=== PATIENT | male | born 1955 | race Caucasian/White ===

== ENCOUNTER → 2016-03-20 | Outpatient (CLI) | payer OTHER ==
[~2016-03-20] MED LIST: AMT50 PO; B-COTAB18 PO; CYAN100T PO; CYM/30 PO; DICL1GEL12 TOP; DULO60CA44 PO; GABA-113 PO; GADAVIST IV PRN; INSDGIPEN SC; INSU70IN2 SC; LISI-725 PO; LISI-729 PO; METF1TAB53 PO; METH4PAK PO; MORP1CAP47 PO; MORP1TAB11 PO; MULT-506 PO; NF656 TOP; NVLGI/PEN SC; OXYC-164 PO; OXYC1TAB3 PO; POLY335019 PO; PRED50TA PO; PREG100C PO; PREG1CAP36 PO; PRS5 PO; TAMS0.4C38 PO; TOLT2TAB9 PO; hydrocodone PO
--- NOTE | 2016-03-20 13:00 | DIAGNOSTIC IMAGING REPORT ---
CERVICAL SPINE MRI WITH AND WITHOUT CONTRAST HISTORY: LOW BACK PAIN,TREMORING,MUSCLE WEAKNESS TECHNIQUE: Multiplanar multisequence MRI of the cervical spine was performed both before and after the use of intravenous contrast. COMPARISON STUDY: None. FINDINGS: Alignment and curvature intact. No fracture or subluxation. Moderate disc space narrowing at C5-C6. Mild disc space. C6-C7. Prevertebral soft tissues and the C1-C2 interval are intact. The visualized posterior fossa is unremarkable. The cervical spinal cord is normal in course, caliber, and signal intensity. Postcontrast sequences show no areas of abnormal enhancement. C2-C3: No significant central canal narrowing. Mild left-sided neural foraminal narrowing due to the facet hypertrophy. C3-C4: No significant central canal or neural foraminal narrowing. C4-C5: No significant central canal or neural foraminal narrowing. C5-C6: Small broad-based posterior disc bulge resulting in partial effacement of the anterior thecal sac without cord deformity. There is also moderate right and mild left neural foraminal narrowing. C6-C7: Broad-based posterior disc bulge which abuts but does not deform the anterior cord. There is mild right and moderate left neural foraminal narrowing. C7-T1: No significant central canal or neural foraminal narrowing. IMPRESSION: 1. Degenerative disc disease at C5-C6 and C6-C7 as described above. 2. Normal cervical spinal cord. No abnormal enhancement. Electronically signed by: Yao Romo M.D. 03/20/2016 12:58 PM Dictated Date/Time: 03/20/2016 12:49 PM
== END | disposition home or self-care (01) ==
LOC: C.MRIBC 10:49
PROVIDERS: ATTEND Anesthesiology
DX: R63.4 Abnormal weight loss (principal); R25.1 Tremor, unspecified; M62.81 Muscle weakness (generalized); M54.5 Low back pain; Z91.81 History of falling; M50.322 Other cervical disc degeneration at C5-C6 level; M50.323 Other cervical disc degeneration at C6-C7 level

== ENCOUNTER → 2016-03-22 | Outpatient (CLI) | payer OTHER ==
[~2016-03-22] MED LIST changes: -GADAVIST IV PRN
--- NOTE | 2016-03-22 13:09 | DIAGNOSTIC IMAGING REPORT ---
MRI THORACIC SPINE COMBO CLINICAL HISTORY: Leg pain and weakness. Frequent falls. COMPARISON STUDY: CT scan of the chest dated 01/04/2016. TECHNIQUE: MRI of the thoracic spine is performed utilizing various T1 and T2-weighted sequences in the axial and sagittal planes. Contrast-enhanced sequences are acquired following the IV administration of 6 cc of Gadavist. FINDINGS: Vertebral body height and alignment are maintained throughout the thoracic spine. Normal marrow signal is preserved throughout the visualized bony structures. No destructive bony lesion is seen. The spinous processes appear intact. There is mild degenerative disc desiccation seen throughout the thoracic spine. There is no acquired compromise of the central canal. Tiny posterior disc osteophyte complexes are seen at T5-T6, T9-T10, and T11-T12. These are of no consequence. No significant neural foraminal stenosis is seen. The thoracic spinal cord is normal in morphology and signal intensity. No abnormal enhancement is identified on the postcontrast images. The conus medullaris terminates at the T12-L1 interspace. The paraspinous soft tissues are within normal limits. IMPRESSION: 1. There is no disc herniation, central canal stenosis, or significant neural foraminal narrowing seen throughout the thoracic spine. 2. Mild degenerative change as above. 3. The thoracic spinal cord is normal in morphology and signal intensity. 4. No destructive bony process is identified. Electronically signed by: Arash Gomez M.D. 03/22/2016 1:07 PM Dictated Date/Time: 03/22/2016 1:00 PM
== END | disposition home or self-care (01) ==
LOC: C.MRIBC 11:32
PROVIDERS: ATTEND Anesthesiology
DX: R63.4 Abnormal weight loss (principal); M62.81 Muscle weakness (generalized); R29.6 Repeated falls; M54.5 Low back pain; R25.1 Tremor, unspecified; Z91.81 History of falling

== ENCOUNTER → 2016-04-26 | Outpatient (CLI) | payer OTHER ==
[2016-04-26 12:57] LABS: ESTIMATED AVERAGE GLUCOSE 117 mg/dl; HA1C FLAG Normal (Normal)
[2016-04-26 13:07] LABS: ALT/SGPT 31 U/L (12-78); AST/SGOT 14 U/L (15-37); BLOOD UREA NITROGEN 11 mg/dl (7-18); BUN/CREATININE RATIO 18.5 (10-20); CALCIUM 9.2 mg/dl (8.5-10.1); CARBON DIOXIDE 29 mmol/L (21-32); CHLORIDE 99 mmol/L (98-107); CHOLESTEROL 175 mg/dl (0-200); CREATININE 0.61 mg/dl (0.60-1.40); GLUCOSE 119 mg/dl (70-99); POTASSIUM 4.5 mmol/L (3.5-5.1); SODIUM 136 mmol/L (136-145); TRIGLYCERIDES 136 mg/dl (0-150); VERY LOW DENSITY LIPOPROT CALC 27 mg/dl
[2016-04-26 13:16] LABS: ALB/GLOB RATIO 1.1 (0.9-2); ALKALINE PHOSPHATASE 95 U/L (45-117); CHOLESTEROL/HDL RATIO 3.6; HDL CHOLESTEROL 48 mg/dl; LDL CHOLESTEROL CALCULATED 100 mg/dl; PROSTATE SPECIFIC ANTIGEN 0.543 ng/ml (0.000-4.000); THYROID STIMULATING HORMONE 0.786 uIu/ml (0.300-4.500)
[2016-04-26 19:42] LABS: RATIO 6.3 mcg/mg (0-30.0)
[2016-04-30 14:05] LABS: GAMMA GLOBULIN 0.6 G/DL (0.8-1.7); TOTAL PROTEIN 6.6 G/DL (6.2-8.3)
== END | disposition home or self-care (01) ==
LOC: C.LABPBG 10:31
PROVIDERS: ATTEND Psychiatry & Neurology Neurology
DX: E11.65 Type 2 diabetes mellitus with hyperglycemia (principal); Z12.5 Encounter for screening for malignant neoplasm of prostate; G62.9 Polyneuropathy, unspecified; M62.81 Muscle weakness (generalized); R53.1 Weakness

== ENCOUNTER 2016-06-02 19:48 | Emergency (ER) | payer OTHER ==
[~2016-06-02] VITALS: Ht 172.7 cm; Wt 65.9 kg
[~2016-06-02 19:48] MED LIST changes: -B-COTAB18 PO; -CYAN100T PO; -CYM/30 PO; -DICL1GEL12 TOP; -INSDGIPEN SC; -LISI-729 PO; -METH4PAK PO; -MORP1CAP47 PO; -NF656 TOP; -NVLGI/PEN SC; -OXYC-164 PO; -PRED50TA PO; -PREG100C PO; -PREG1CAP36 PO; -TOLT2TAB9 PO; -hydrocodone PO
[2016-06-02 19:55] VITALS: TEMP 36.8; Ht 172.7 cm; Wt 65.9 kg
[2016-06-02] MEDS ORDERED: ONDANSETRON 8 MG/54 ML D5W IV STA (20:20)
[2016-06-02] MEDS ORDERED: HYDROmorphone INJ 1 MG/ML SYR IV STA ×2 (20:20→23:09)
[2016-06-02] MEDS ORDERED: SODIUM CHLORIDE 0.9% 1000ML 1,000 ML IV STA (20:20)
[2016-06-02 20:32] VITALS: O2SAT 96
[2016-06-02] MEDS ORDERED: CYM/30 PO (20:52)
[2016-06-02] MEDS ORDERED: LISI-729 PO (20:55)
[2016-06-02 21:00] LABS: BASO % 0.1 %; BASO ABS # 0.01 K/uL (0-0.2); COMPLETE YES; EOS % 1.6 %; HEMATOCRIT 41.6 % (42-52); IG% 0.3 %; LYMPH ABS # 1.03 K/uL (1.2-3.4); MEAN CELL VOLUME 87.2 fL (80-100); MEAN CORPUSCULAR HEMOGLOBIN 30.6 pg (25-34); MEAN CORPUSCULAR HGB CONC 35.1 g/dl (32-36); MEAN PLATELET VOLUME 9.5 fL (7.4-10.4); MONO % 12.6 %; NEUT % 71.4 %; PLATELET COUNT 221 K/uL (130-400); RED BLOOD COUNT 4.77 M/uL (4.7-6.1); WHITE BLOOD COUNT 7.37 K/uL (4.8-10.8)
[2016-06-02] MEDS ORDERED: DICL1GEL12 TOP (21:01)
[2016-06-02] MEDS ORDERED: INSDGIPEN SC (21:02)
[2016-06-02] MEDS ORDERED: NF656 TOP (21:05)
[2016-06-02 21:09] LABS: PARTIAL THROMBOPLASTIN RATIO 1.1
[2016-06-02] MEDS ORDERED: NVLGI/PEN SC (21:10)
[2016-06-02] MEDS ORDERED: OXYC-164 PO (21:12)
[2016-06-02] MEDS ORDERED: TOLT2TAB9 PO (21:14)
[2016-06-02] MEDS ORDERED: PREG1CAP36 PO (21:16)
[2016-06-02 21:24] LABS: ALT/SGPT 27 U/L (12-78); BLOOD UREA NITROGEN 7 mg/dl (7-18); BUN/CREATININE RATIO 15.9 (10-20); C-REACTIVE PROTEIN 0.68 mg/dl (0-0.29); CALCIUM 8.6 mg/dl (8.5-10.1); CARBON DIOXIDE 27 mmol/L (21-32); CHLORIDE 103 mmol/L (98-107); CREATININE 0.46 mg/dl (0.60-1.40); GLUCOSE 119 mg/dl (70-99); MAGNESIUM 1.6 mg/dl (1.8-2.4); POTASSIUM 3.8 mmol/L (3.5-5.1); SODIUM 138 mmol/L (136-145)
[2016-06-02] MEDS ORDERED: hydrocodone PO (21:27)
[2016-06-02 21:33] LABS: ALKALINE PHOSPHATASE 87 U/L (45-117); AST/SGOT 16 U/L (15-37); CKMB/CK RATIO 3.8 (0-3.0); THYROID STIMULATING HORMONE 0.796 uIu/ml (0.300-4.500)
[2016-06-02] MEDS ORDERED: OPTIRAY 320 IV PRN (22:00)
--- NOTE | 2016-06-02 22:16 | DIAGNOSTIC IMAGING REPORT ---
CT SCAN OF THE ABDOMEN AND PELVIS WITH IV CONTRAST CLINICAL HISTORY: Generalized abdominal pain. COMPARISON STUDY: Abdominal CT dated 01/26/2016 and 11/13/2013. TECHNIQUE: Following the IV administration of 115 cc of Optiray 320, CT scan of the abdomen and pelvis is performed from the lung bases to the proximal femora. Images are reviewed in the axial, sagittal, and coronal planes. IV contrast was administered without complication. Automated dose control exposure was utilized. FINDINGS: Lung bases: The heart is top normal in size and there is a small pericardial effusion. There are coronary artery calcifications. The lung bases are clear noting dependent atelectasis. A tiny hiatal hernia is identified. Mild gynecomastia is noted. Liver: The contrast-enhanced liver is normal in size and contour. The liver demonstrates diffusely diminished attenuation consistent with hepatic steatosis. There is no intrahepatic biliary ductal dilatation. The hepatic veins and portal veins are patent. Gallbladder: Surgically absent noting clips in the gallbladder fossa. Spleen: Normal in size and attenuation. Pancreas: Moderately atrophic. Adrenal glands: An 8 mm myelolipoma is noted in the left adrenal gland. The right adrenal gland is normal in appearance. Kidneys: The contrast enhanced kidneys are normal in size and without hydronephrosis. The kidneys enhance symmetrically. Subcentimeter cortical hypodensities likely represent cysts but are too small for definitive characterization. Abdominal vasculature: The abdominal aorta is normal in course and caliber noting mild atherosclerotic calcification. 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 The duodenum fails to cross midline. The colon is in appropriate position. There is no bowel obstruction. The appendix is well-visualized and normal. Peritoneum: No intraperitoneal free air is identified. Again seen is extensive nonspecific haziness and stranding throughout the mesentery. More focal nodularity in the mesentery seen on image #[id number]. These findings are similar appearance to studies dating back to 2013. Lymphadenopathy: There are numerous prominent mesenteric lymph nodes, which measure up to 10 mm in short axis. No retroperitoneal, pelvic sidewall, or inguinal lymphadenopathy is seen. Pelvic viscera: The prostate gland is top normal in size. A small apical diverticulum arises from the bladder dome as seen on image #[id number]. The bladder is otherwise normal in appearance. Skeletal structures: No lytic or blastic lesions are seen. There is mild lumbosacral spondylosis, greatest at L4-L5 and L5-S1. IMPRESSION: 1. There are no acute infectious or inflammatory findings in the abdomen or pelvis. 2. 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 There is no bowel obstruction. 3. There has been no significant change in the appearance of nonspecific haziness and infiltration of the mesentery, greatest in the right mid abdomen, as compared to studies dating back to 2014. This is of indeterminant etiology and significance. Prominent mesenteric lymph nodes are also not significantly changed. Consider nonemergent follow-up with hematology as a low-grade lymphoproliferative disorder could potentially have this appearance. 4. Mild hepatic steatosis. 5. Small pericardial effusion. 6. Additional findings as above. Electronically signed by: Arash Gomez M.D. 06/02/2016 10:15 PM Dictated Date/Time: 06/02/2016 10:02 PM
--- NOTE | 2016-06-02 22:30 | DIAGNOSTIC IMAGING REPORT ---
CT ANGIOGRAM OF THE CHEST CLINICAL HISTORY: Atypical chest pain. Dyspnea. COMPARISON STUDY: Chest x-ray dated 01/26/2016. Chest CT dated 01/04/2016. TECHNIQUE: Following the IV administration of 115 cc of Optiray 320, CT angiogram of the chest was performed from the upper abdomen to the thoracic inlet utilizing the pulmonary embolus protocol. Images are reviewed in the axial, sagittal, and coronal planes. 3-D MIPS images are created and assessed. IV contrast was administered without complication. CT DOSE: 578.95 mGy.cm FINDINGS: Thyroid: Imaged portions of the thyroid gland are normal in size and attenuation. Thoracic aorta: There is mild atherosclerotic calcification of the thoracic aorta, which is normal in caliber and demonstrates standard 3-vessel arch anatomy. No dissection is seen. Pulmonary vasculature: The pulmonary trunk is normal in caliber. There are no filling defects identified in main, lobar, or segmental pulmonary branches to suggest pulmonary embolus. Heart: The heart is top normal in size and configuration, and there is a small pericardial effusion. There are coronary artery calcifications. Lungs and pleural spaces: There is no airspace consolidation or pleural effusion. Dependent atelectasis is noted. The trachea and central airways are clear. Mediastinum: There is no mediastinal lymphadenopathy. Laly: Clear. Axillae: There is no axillary lymphadenopathy. Upper abdomen: Hepatic steatosis is observed. The gallbladder surgically absent. A subcentimeter myelolipoma is noted in the left adrenal gland. There is haziness in the upper abdominal mesentery. See report of abdominal CT performed concurrently for detailed intra-abdominal findings. Skeletal structures: The skeletal structures appear osteopenic. No lytic or blastic bony lesions are seen. Mild degenerative change is noted throughout the thoracic spine. IMPRESSION: 1. There is no evidence of pulmonary embolus in the main, lobar, or segmental pulmonary arteries. 2. There is no airspace consolidation or pleural effusion. 3. Small pericardial effusion. 4. Additional findings as above. Electronically signed by: Arash Gomez M.D. 06/02/2016 10:29 PM Dictated Date/Time: 06/02/2016 10:24 PM
[2016-06-02] MEDS ORDERED: MAGNESIUM SULFATE 1GM / D5W 1 GM BAG IV STA (23:40)
[2016-06-02 23:50] LABS: URINE APPEARANCE CLEAR (CLEAR); URINE BILIRUBIN NEG (NEG); URINE COLOR YELLOW; URINE NITRITE NEG (NEG); URINE PH 5.5 (4.5-7.5); URINE SPECIFIC GRAVITY > 1.045 (1.000-1.030); UROBILINOGEN NEG (NEG)
[2016-06-03 00:04] LABS: MANUAL MICROSCOPIC REQUIRED? NO; REVIEW REQ? NO
[2016-06-03] MEDS ORDERED: OXYCODONE IR HOME PACK PO ONE (00:15)
[2016-06-03] MEDS ORDERED: DEXAMETHASONE SOD INJ 10 MG/ML VIAL IV ONE (00:15)
[2016-06-03] MEDS ORDERED: MAGNESIUM SULFATE 1GM / D5W 1 GM BAG IV STA (00:22)
[2016-06-03] MEDS ORDERED: PRED50TA PO (00:54)
[2016-06-03] MEDS ORDERED: HYDROmorphone INJ 1 MG/ML SYR IV STA (00:58)
[2016-06-03 01:05] VITALS: BP 125/75; PULSE 66; O2SAT 95
--- NOTE | 2016-06-03 01:51 | EMERGENCY ROOM VISIT NOTE ---
History Report prepared by Claire: Keyon Witt Under the Supervision of: Dr. Rufus Odonnell M.D. First contact with patient: 20:00 Chief Complaint: ABDOMINAL PAIN Stated Complaint: ABDOMINAL,BACK, RIB PAIN History of Present Illness The patient is a 60 year old male who presents to the Emergency Room with complaints of upper back pain that began 6 months ago. He rates his pain a 9/10 in severity. The patient has seen 6 doctors for this same issue, and none of them have found any evidence of abnormality. He received an MRI of his brain on 27 Feb 2016 that was normal, cervical MRI on 20 Mar 2016 that showed mild DDD, and a thoracic MRI on 22 Mar 2016 that was normal. The patient has not left his bed for the past three days secondary to the pain. His pain is radiating down to his lower back, around into his ribs, and into his abdomen as well. He fell 3 times tonight, but he did not hit his head or lose consciousness. The patient is currently experiencing weakness and nausea. He is short of breath, secondary to the pain. His nausea worsens with eating. The patient has a history of neuropathy. Patient denies LOC, headache, fevers, chills, diaphoresis, visual changes, neck pain, vomiting, melena, hematochezia, urinary symptoms, numbness, lymphadenopathy, rash, or other complaints. He uses Lidoderm patches to help maintain his pain, but they do not help. Source of History: patient Onset: 6 months ago Position: back Symptom Intensity: 9/10 Quality: ache Timing: constant Associated Symptoms: + SOB, + abdominal pain, + chest pain (Rib), + nausea, + weakness Review of Systems See HPI for pertinent positives and negatives. A total of ten systems were reviewed and were otherwise negative. Past Medical & Surgical Medical Problems: (1) Chronic cholecystitis (2) Chronic liver disease (3) Diabetes mellitus (4) Diabetic peripheral neuropathy (5) Heart disease (6) Hypertension Family History Diabetes mellitus FATHER MOTHER FH: gallbladder disease MOTHER FHx: heart disease MOTHER Hypertension FATHER MOTHER Kidney disease MOTHER Jorge's disease Social History Smoking Status: Never Smoker Alcohol Use: other Drug Use: none Marital Status: Housing Status: lives with significant other Occupation Status: unemployed Current/Historical Medications Scheduled Duloxetine HCl (Cymbalta), 1 CAP PO QPM Finasteride (Finasteride), 5 MG PO DAILY Insulin Aspart (Novolog Flexpen), 1 DOSE SC UD Insulin Glargine (Lantus Solostar), 10 SC BID Lidocaine (Lidoderm Patch 5%), 1 PATCH TOP UD Lisinopril (Prinivil), 5 MG PO DAILY Metformin Hcl (Glucophage Ext Rel), 1,000 MG PO BID Morphine Sulfate (Morphine Sulfate Er), 1 TAB PO Q12 Multivitamin (Multivitamin), 1 TAB PO DAILY Prednisone (Prednisone), 50 MG PO DAILY Pregabalin (Lyrica), Unknown Dose PO TID Tamsulosin Hcl (Flomax), 0.8 MG PO QPM Tolterodine Tartrate (Tolterodine Tartrate), 2 MG PO BID [hydrocodone], 500 MG PO Q6 Scheduled PRN Diclofenac Sodium (Topical) (Voltaren 1% Top Gel), 2 GM TOP QID PRN for Pain Oxycodone Hcl (Oxycodone Hcl), 0.5-1 TAB PO Q6 PRN for Pain Polyethylene Glycol 3350 (Miralax), 17 GM PO DAILY PRN for CONSTIPATION Allergies Coded Allergies: No Known Allergies (Unverified , 06/02/16) Physical Exam Vital Signs Date Time Temp Pulse Resp B/P Pulse Ox O2 Delivery O2 Flow Rate FiO2 06/03/16 01:05 66 26 125/75 95 06/03/16 00:30 105/54 06/03/16 00:10 70 15 95 06/03/16 00:00 135/87 06/02/16 23:47 128/85 06/02/16 23:40 70 17 96 06/02/16 23:10 71 96 06/02/16 23:05 70 97 06/02/16 23:00 148/88 06/02/16 22:35 69 14 96 06/02/16 22:30 151/94 06/02/16 22:05 67 14 97 06/02/16 22:00 143/83 06/02/16 21:35 72 19 95 06/02/16 21:30 136/81 06/02/16 21:18 73 23 95 06/02/16 21:15 134/75 06/02/16 21:13 134/87 06/02/16 21:11 133/82 06/02/16 21:10 74 19 133/82 96 Room Air 76 134/87 87 134/75 06/02/16 21:00 128/85 06/02/16 20:48 83 18 06/02/16 20:32 96 Room Air 06/02/16 20:31 81 06/02/16 20:30 139/91 06/02/16 20:03 132/80 06/02/16 19:55 36.8 82 16 126/78 99 Room Air Physical Exam GENERAL: Awake, alert, uncomfortable appearing, in no distress HENT: Normocephalic, atraumatic. Oropharynx unremarkable. EYES: Normal conjunctiva. Sclera non-icteric. NECK: Supple. No nuchal rigidity. FROM. No JVD. RESPIRATORY: Clear to auscultation. CARDIAC: Regular rate, normal rhythm. Extremities warm and well perfused. Pulses equal. ABDOMEN: Soft, non-distended. Mild left and right upper quadrant tenderness to palpation. No rebound or guarding. No masses. RECTAL: Deferred. MUSCULOSKELETAL: Chest examination reveals bilateral rib tenderness. The back is symmetrical on inspection without obvious abnormality. There is no CVA tenderness to palpation. No joint edema. LOWER EXTREMITIES: Calves are equal size bilaterally and non-tender. No edema. No discoloration. UPPER EXTREMITIES: Resting tremor present. NEURO: Normal sensorium. No sensory or motor deficits noted. 3/5 strength in the lower extremities(which is not new). SKIN: No rash or jaundice noted. Medical Decision & Procedures ER Provider Diagnostic Interpretation: X ray results as stated below per my interpretation and radiologist interpretation. Other radiology results as stated below per my review and radiologist interpretation CT ANGIOGRAM OF THE CHEST CLINICAL HISTORY: Atypical chest pain. Dyspnea. COMPARISON STUDY: Chest x-ray dated 01/26/2016. Chest CT dated 01/04/2016. TECHNIQUE: Following the IV administration of 115 cc of Optiray 320, CT angiogram of the chest was performed from the upper abdomen to the thoracic inlet utilizing the pulmonary embolus protocol. Images are reviewed in the axial, sagittal, and coronal planes. 3-D MIPS images are created and assessed. IV contrast was administered without complication. CT DOSE: 578.95 mGy.cm FINDINGS: Thyroid: Imaged portions of the thyroid gland are normal in size and attenuation. Thoracic aorta: There is mild atherosclerotic calcification of the thoracic aorta, which is normal in caliber and demonstrates standard 3-vessel arch anatomy. No dissection is seen. Pulmonary vasculature: The pulmonary trunk is normal in caliber. There are no filling defects identified in main, lobar, or segmental pulmonary branches to suggest pulmonary embolus. Heart: The heart is top normal in size and configuration, and there is a small pericardial effusion. There are coronary artery calcifications. Lungs and pleural spaces: There is no airspace consolidation or pleural effusion. Dependent atelectasis is noted. The trachea and central airways are clear. Mediastinum: There is no mediastinal lymphadenopathy. Laly: Clear. Axillae: There is no axillary lymphadenopathy. Upper abdomen: Hepatic steatosis is observed. The gallbladder surgically absent. A subcentimeter myelolipoma is noted in the left adrenal gland. There is haziness in the upper abdominal mesentery. See report of abdominal CT performed concurrently for detailed intra-abdominal findings. Skeletal structures: The skeletal structures appear osteopenic. No lytic or blastic bony lesions are seen. Mild degenerative change is noted throughout the thoracic spine. IMPRESSION: 1. There is no evidence of pulmonary embolus in the main, lobar, or segmental pulmonary arteries. 2. There is no airspace consolidation or pleural effusion. 3. Small pericardial effusion. 4. Additional findings as above. Electronically signed by: Arash Gomez M.D. 06/02/2016 10:29 PM Dictated Date/Time: 06/02/2016 10:[address] SCAN OF THE ABDOMEN AND PELVIS WITH IV CONTRAST CLINICAL HISTORY: Generalized abdominal pain. COMPARISON STUDY: Abdominal CT dated 01/26/2016 and 11/13/2013. TECHNIQUE: Following the IV administration of 115 cc of Optiray 320, CT scan of the abdomen and pelvis is performed from the lung bases to the proximal femora. Images are reviewed in the axial, sagittal, and coronal planes. IV contrast was administered without complication. Automated dose control exposure was utilized. FINDINGS: Lung bases: The heart is top normal in size and there is a small pericardial effusion. There are coronary artery calcifications. The lung bases are clear noting dependent atelectasis. A tiny hiatal hernia is identified. Mild gynecomastia is noted. Liver: The contrast-enhanced liver is normal in size and contour. The liver demonstrates diffusely diminished attenuation consistent with hepatic steatosis. There is no intrahepatic biliary ductal dilatation. The hepatic veins and portal veins are patent. Gallbladder: Surgically absent noting clips in the gallbladder fossa. Spleen: Normal in size and attenuation. Pancreas: Moderately atrophic. Adrenal glands: An 8 mm myelolipoma is noted in the left adrenal gland. The right adrenal gland is normal in appearance. Kidneys: The contrast enhanced kidneys are normal in size and without hydronephrosis. The kidneys enhance symmetrically. Subcentimeter cortical hypodensities likely represent cysts but are too small for definitive characterization. Abdominal vasculature: The abdominal aorta is normal in course and caliber noting mild atherosclerotic calcification. 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 The duodenum fails to cross midline. The colon is in appropriate position. There is no bowel obstruction. The appendix is well-visualized and normal. Peritoneum: No intraperitoneal free air is identified. Again seen is extensive nonspecific haziness and stranding throughout the mesentery. More focal nodularity in the mesentery seen on image #[id number]. These findings are similar appearance to studies dating back to 2014. Lymphadenopathy: There are numerous prominent mesenteric lymph nodes, which measure up to 10 mm in short axis. No retroperitoneal, pelvic sidewall, or inguinal lymphadenopathy is seen. Pelvic viscera: The prostate gland is top normal in size. A small apical diverticulum arises from the bladder dome as seen on image #334. The bladder is otherwise normal in appearance. Skeletal structures: No lytic or blastic lesions are seen. There is mild lumbosacral spondylosis, greatest at L4-L5 and L5-S1. IMPRESSION: 1. There are no acute infectious or inflammatory findings in the abdomen or pelvis. 2. 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 There is no bowel obstruction. 3. There has been no significant change in the appearance of nonspecific haziness and infiltration of the mesentery, greatest in the right mid abdomen, as compared to studies dating back to 2014. This is of indeterminant etiology and significance. Prominent mesenteric lymph nodes are also not significantly changed. Consider nonemergent follow-up with hematology as a low-grade lymphoproliferative disorder could potentially have this appearance. 4. Mild hepatic steatosis. 5. Small pericardial effusion. 6. Additional findings as above. Electronically signed by: Arash Gomez M.D. 06/02/2016 10:15 PM Dictated Date/Time: 06/02/2016 10:02 PM Laboratory Results 06/02/16 20:45 Red Blood Count 4.77, Mean Corpuscular Volume 87.2, Mean Corpuscular Hemoglobin 30.6, Mean Corpuscular Hemoglobin Concent 35.1, Mean Platelet Volume 9.5, Neutrophils (%) (Auto) 71.4, Lymphocytes (%) (Auto) 14.0, Monocytes (%) (Auto) 12.6, Eosinophils (%) (Auto) 1.6, Basophils (%) (Auto) 0.1, Neutrophils # (Auto ) 5.26, Lymphocytes # (Auto) 1.03, Monocytes # (Auto) 0.93, Eosinophils # (Auto ) 0.12, Basophils # (Auto) 0.01 06/02/16 20:45 Test 06/02/16 20:45 06/02/16 23:34 White Blood Count 7.37 K/uL (4.8-10.8) Red Blood Count 4.77 M/uL (4.7-6.1) Hemoglobin 14.6 g/dL (14.0-18.0) Hematocrit 41.6 % (42-52) Mean Corpuscular Volume 87.2 fL (80-100) Mean Corpuscular Hemoglobin 30.6 pg (25-34) Mean Corpuscular Hemoglobin Concent 35.1 g/dl (32-36) Platelet Count 221 K/uL (130-400) Mean Platelet Volume 9.5 fL (7.4-10.4) Neutrophils (%) (Auto) 71.4 % Lymphocytes (%) (Auto) 14.0 % Monocytes (%) (Auto) 12.6 % Eosinophils (%) (Auto) 1.6 % Basophils (%) (Auto) 0.1 % Neutrophils # (Auto) 5.26 K/uL (1.4-6.5) Lymphocytes # (Auto) 1.03 K/uL (1.2-3.4) Monocytes # (Auto) 0.93 K/uL (0.11-0.59) Eosinophils # (Auto) 0.12 K/uL (0-0.5) Basophils # (Auto) 0.01 K/uL (0-0.2) RDW Standard Deviation 41.3 fL (36.4-46.3) RDW Coefficient of Variation 12.8 % (11.5-14.5) Immature Granulocyte % (Auto) 0.3 % Immature Granulocyte # (Auto) 0.02 K/uL (0.00-0.02) Erythrocyte Sedimentation Rate 13 mm/hr (0-14) Prothrombin Time 11.0 SECONDS (9.0-12.0) Prothromb Time International Ratio 1.0 (0.9-1.1) Activated Partial Thromboplast Time 28.4 SECONDS (21.0-31.0) Partial Thromboplastin Ratio 1.1 Anion Gap 8.0 mmol/L (3-11) Est Creatinine Clear Calc Drug Dose 159.2 ml/min Estimated GFR () 141.3 Estimated GFR (Non- 121.9 BUN/Creatinine Ratio 15.9 (10-20) Calcium Level 8.6 mg/dl (8.5-10.1) Magnesium Level 1.6 mg/dl (1.8-2.4) Total Bilirubin 0.6 mg/dl (0.2-1) Direct Bilirubin 0.1 mg/dl (0-0.2) Aspartate Amino Transf (AST/SGOT) 16 U/L (15-37) Alanine Aminotransferase (ALT/SGPT) 27 U/L (12-78) Alkaline Phosphatase 87 U/L (45-117) Total Creatine Kinase 42 U/L (39-308) Creatine Kinase MB 1.6 ng/ml (0.5-3.6) Creatine Kinase MB Ratio 3.8 (0-3.0) Troponin I < 0.015 ng/ml (0-0.045) C-Reactive Protein 0.68 mg/dl (0-0.29) Total Protein 6.9 gm/dl (6.4-8.2) Albumin 3.6 gm/dl (3.4-5.0) Lipase 224 U/L (73-393) Thyroid Stimulating Hormone (TSH) 0.796 uIu/ml (0.300-4.500) Urine Color YELLOW Urine Appearance CLEAR (CLEAR) Urine pH 5.5 (4.5-7.5) Urine Specific [place] > 1.045 (1.000-1.030) Urine Protein NEG (NEG) Urine Glucose (UA) NEG (NEG) Urine Ketones NEG (NEG) Urine Occult Blood NEG (NEG) Urine Nitrite NEG (NEG) Urine Bilirubin NEG (NEG) Urine Urobilinogen NEG (NEG) Urine Leukocyte Esterase NEG (NEG) Laboratory results reviewed by me Medications Administered Medications (Trade) Dose Ordered Sig/Ada Route Start Time Stop Time Status Last Admin Dose Admin Ondansetron HCl 8 mg 8 mg NOW STAT IV 06/02/16 20:20 06/02/16 20:26 DC 06/02/16 21:10 8 MG Sodium Chloride (Nss 1000ml) 1,000 ml @ 999 mls/hr Q1H1M STAT IV 06/02/16 20:20 06/02/16 21:20 DC 06/02/16 21:10 999 MLS/HR Hydromorphone HCl (Dilaudid Inj) 1 mg NOW STAT IV 06/02/16 20:20 06/02/16 20:26 DC 06/02/16 21:20 1 MG Hydromorphone HCl (Dilaudid Inj) 1 mg NOW STAT IV 06/02/16 23:09 06/02/16 23:10 DC 06/02/16 23:16 1 MG Magnesium Sulfate (Magnesium Sulfate) 2 gm NOW STAT IV 06/02/16 23:40 06/03/16 00:23 DC 06/02/16 23:48 2 GM Dexamethasone Sodium Phosphate (Decadron Inj) 8 mg NOW ONCE IV 06/03/16 00:15 06/03/16 00:16 DC 06/03/16 01:00 8 MG Oxycodone HCl (Roxicodone Immediate Rel 5MG Home Pack) 1 homepack UD ONCE PO 06/03/16 00:15 06/03/16 00:16 DC 06/03/16 01:00 1 HOMEPACK ECG Indication: abdominal pain Rate (beats per minute): 78 Rhythm: normal sinus Findings: no acute ischemic change, no ectopy, other (Low Voltage QRS) ED Course 1999: The patient was evaluated in room C7. A complete history and physical exam was performed. 2019: Ordered Dilaudid 1 mg IV, Sodium Chloride 1000 ml @ 999 mls/hr IV, Ondansetron HCl 8 mg IV 2308: Dilaudid Inj 1 mg IV 2340: Magnesium Sulfate 1 gm IV 0010: At this time, I offered treatment to the patient as an inpatient. He declined. He would rather go home rather than doing the same treatments and procedures he has been doing. He feels comfortable going home. I suggested trying a short course of steroids while discussing the risks and benefits with the patient. He states that he has never tried this before, and he would like to try it. He has the ability to monitor his sugar with a sliding scale, and he will do so vigilantly. He asked for more pain medications because he ran out until two days from now. I agreed to give him some just for tonight. The patient will be discharged. 0015: Oxycodone HCl 1 homepack PO, Decadron Inj 8 mg IV 0030: I reevaluated the patient. Discussed results and discharge instructions: He verbalized understanding and agreement. The patient is ready for discharge. Medical Decision Triage Nursing notes reviewed. The patient's presentation and history were concerning for weakness, tremor, back and trunk pain. Etiologies such as metabolic, infection, hypo/hyperglycemia, electrolyte abnormalities, cardiac sources, intracerebral event, toxicologic, neurologic, as well as others were entertained. The patient was evaluated. He seemed uncomfortable. The should be a video of him at home and he had a rhythmic tremor of his hands and feet while sitting in a chair. The patient has had problems since December 2015. He has back pains that migrate. He has rib and abdominal pains. The patient has been taking a lot of pain medication for this. He was prescribed morphine and oxycodone. He has ran out of his oxycodone and the states that that was just about a day ago. He was getting worse over the last few days but they got worse today and they were unsure what to do so she brought him to the Emergency Room. He has been seen by multiple physicians in the past. He has had an evaluation for Parkinson's, ALS, and MS which were negative. The patient was diagnosed with a neuropathy, unspecified. The patient was given Zofran, fluids and Dilaudid here. He did feel better with this. He underwent an extensive workup. He had an unremarkable CBC and chemistry panel except for mild hypomagnesemia. This was repleted with 1 g of magnesium. The patient had an unremarkable ESR and CRP. Cardiac markers were unremarkable as well as LFTs. Urinalysis was negative. The patient was given additional Dilaudid. On reassessment he was more relaxed and feeling better by his own account. He underwent CT imaging of the chest abdomen and pelvis. There were no gross abnormalities noted for an acute process. The patient did have some nonspecific stranding in the mesentery but this was seen all the way back to 2013 and the patient's abdominal symptoms did not start until 2016. This seems less likely as a cause. He will need further evaluation and management. I did offer consultation with internal medicine for admission. The patient's and patient states that's similar to what happened last time. Since he is feeling better he would prefer to try and go home and did ask for further direction. The patient states that he is out of his oxycodone and cannot fill his prescription until Saturday. He does have his morphine. I did have a long discussion about the fact that we would not provide chronic prescription management for him but I would give him a few pills to use at home tonight only. He has never been tried on a steroid for his back pains when it was this severe. I did offer this with a long discussion about the risks and benefits of hyperglycemia. He states he has good experience with controlling his sugars on an as-needed basis with his insulin. I did discuss dietary modification. He was given a dose of Decadron here and will be prescribed only 3 days of prednisone. If this is going to help I suspect we should see some benefit in the next day or 2. If his sugars are controllable than his primary can entertain the option for additional steroids. The patient was encouraged to follow-up with [facility] neurology as he has of this undiagnosed neuropathy. The family was asking for additional suggestions and that would be the closest tertiary care center to them. If the patient has problems with hyperglycemia he will come back to the emergency department. If he develops worsening symptoms he will come back to the emergency department. I also did discuss the issue of medication dependence and withdrawal. The patient seemed to have a small component of that even though he is still on the morphine but out of the oxycodone only for one day. He had significant improvement with the Dilaudid with regards to his appearance and tremor. He has a pending appointment with pain management. Just prior to discharge I did readdress admission versus outpatient treatment and the patient and feel very comfortable with going home and would like to do so. By the evaluation outlined above other emergent etiologies such as those listed in the differential, as well as others, were deemed relatively unlikely. The patient and were informed about the findings as listed above. All questions were answered and they were pleased with the treatment. Return instructions were outlined and the patient was discharged in stable condition. The chart was completed utilizing [employer] Speech voice recognition software. Grammatical errors, random word insertions, pronoun errors, and incomplete sentences are an occasional consequence of this system due to software limitations, ambient noise, and hardware issues. Any formal questions or concerns about the content, text, or information contained within the body of this dictation should be directly addressed to the physician for clarification. [place] Drug Monitoring Program Search Results: patient reviewed within database Drug Monitoring Findings: The patient has numerous prescriptions from multiple providers over the past 12 months. Impression Primary Impression: Back pain Additional Impressions: Generalized abdominal pain Tremor Scribe Attestation The scribe's documentation has been prepared under my direction and personally reviewed by me in its entirety. I confirm that the note above accurately reflects all work, treatment, procedures, and medical decision making performed by me. Departure Information Dispostion Home / Self-Care Prescriptions Prednisone (Prednisone) 50 Mg Tab 50 MG PO DAILY for 3 Days, #3 TAB Prov: Rufus Odonnell MD 06/03/16 Referrals Tasneem Youngblood DO (PCP) Forms Call Back Authorization, HOME CARE DOCUMENTATION FORM, IMPORTANT VISIT INFORMATION Patient Instructions My [facility] Additional Instructions DO NOT drive, drink alcohol, operate machinery, or perform dangerous activities today. You were given medications in the ER that can affect your ability to safely function or operate a vehicle. Prednisone 50mg: Once daily until the prescription is finished. It is best to take this earlier in the day as some patients note occasional difficulty falling asleep when taken in the late evening. Monitor blood sugar readings at least 4 times a day. Use your insulin as previously instructed to control any elevations. Prednisone will cause your blood sugar to be elevated. Watch simple sugars and carbohydrates. Increase intake of protein and fat during meals. Oxycodone (OxyIR) 5mg: Take 1-2 pills every 6 hours for breakthrough pain. Avoid alcohol, operating machinery or dangerous equipment, working on ladders or roofs, DRIVING, or situations where being under the influence may be dangerous. Rest and avoid heavy lifting until your symptoms resolve and then gradually return to full activity. A good rule of thumb is if it hurts your back to perform a certain activity, then it should be avoided until you are healthy again. A heating pad, warm compresses, or a hot shower may help with tight muscles and can be done several times a day as needed. Continue current medications. Return to the ER immediately for any numbness, tingling, severe pain, loss of control of your bowels or bladder, inability to walk, or as needed. Follow up with your primary care physician Saturday for a recheck of your current condition. Follow-up with [facility] as discussed for additional consultation. Problem Qualifiers
[2016-06-06] MEDS ORDERED: CYAN100T PO (09:45)
[2016-06-06] MEDS ORDERED: PREG100C PO (09:45)
[2016-10-01] MEDS ORDERED: B-COTAB18 PO (11:39)
[2016-11-05] MEDS ORDERED: MORP1CAP47 PO (09:59)
== END 2016-06-03 01:05 | disposition home or self-care (01) ==
LOC: C.EDB 19:49 → C.EDC 06-03 01:05
DX: M54.6 Pain in thoracic spine (principal); M54.5 Low back pain; R10.84 Generalized abdominal pain; R25.1 Tremor, unspecified; E83.42 Hypomagnesemia; R06.02 Shortness of breath; E11.40 Type 2 diabetes mellitus with diabetic neuropathy, unspecified; K81.1 Chronic cholecystitis; K76.9 Liver disease, unspecified; I10 Essential (primary) hypertension; Z79.4 Long term (current) use of insulin; Z83.3 Family history of diabetes mellitus; Z82.49 Family history of ischemic heart disease and other diseases of the circulatory system; I31.3 Pericardial effusion (noninflammatory); E27.9 Disorder of adrenal gland, unspecified; Q43.3 Congenital malformations of intestinal fixation

== ENCOUNTER 2016-07-17 12:35 | Emergency (ER) | payer OTHER ==
[~2016-07-17] VITALS: Ht 172.7 cm; Wt 64.0 kg
[~2016-07-17 12:35] MED LIST changes: -B-COTAB18 PO; -DULO60CA44 PO; -GADAVIST IV PRN; -METH4PAK PO; -MORP1CAP47 PO
[2016-07-17 12:37] VITALS: TEMP 37; Ht 172.7 cm; Wt 64.0 kg
[2016-07-17] MEDS ORDERED: ONDANSETRON INJ 2 MG/ML 2 ML VIAL IV STA ×2 (12:55→13:30)
[2016-07-17 13:09] LABS: BASO % 0.3 %; BASO ABS # 0.02 K/uL (0-0.2); COMPLETE YES; EOS % 0.7 %; HEMATOCRIT 45.7 % (42-52); IG% 0.3 %; LYMPH % 18.4 %; LYMPH ABS # 1.24 K/uL (1.2-3.4); MEAN CELL VOLUME 86.9 fL (80-100); MEAN CORPUSCULAR HEMOGLOBIN 30.4 pg (25-34); MEAN PLATELET VOLUME 9.3 fL (7.4-10.4); MONO % 9.2 %; NEUT % 71.1 %; PLATELET COUNT 240 K/uL (130-400); RED BLOOD COUNT 5.26 M/uL (4.7-6.1); WHITE BLOOD COUNT 6.74 K/uL (4.8-10.8)
[2016-07-17] MEDS ORDERED: DULO60CA44 PO (13:12)
[2016-07-17] MEDS ORDERED: SODIUM CHLORIDE 0.9% 1000ML 1,000 ML IV STA (13:30)
[2016-07-17] MEDS ORDERED: HYDROmorphone INJ 1 MG/ML SYR IV STA ×2 (13:30→15:40)
--- NOTE | 2016-07-17 13:40 | EMERGENCY ROOM VISIT NOTE ---
History First contact with patient: 13:02 Chief Complaint: ABDOMINAL PAIN Stated Complaint: SEVERE SIDE AND STOMACH PAIN Nursing Triage Summary: pt to the ED with c/o diffuse abd pain and nausea and was not able to take meds today due to fasting for tests today History of Present Illness The patient is a 60 year old male who presents to the Emergency Room with complaints of abdominal pain. The patient has had ongoing abdominal pain since December of last year. He states the pain is in the left side and across the left abdomen. The patient states that this is the location of his chronic and ongoing pain. He has not taken his pain medication since Saturday because he had an MRI study performed today. He rates his discomfort a 10/10. He states that the pain has progressively worsened over the last several months. The patient has been evaluated many times for this pain. The patient had a cholecystectomy and felt better for a short time after that. He then developed this left-sided abdominal pain. He has been to this hospital. He has been seen by neurology and orthopedics in [place] and [place]. The patient states that most recently he was referred to gastroenterology. Dr. Heart ordered the MRI that was performed today. The patient states the pain is not any different but it seems worse because he has not been able to take his narcotic pain medication. He denies any urinary symptoms. He denies any constipation or diarrhea. Review of Systems A 10 system review of systems was completed with positives and pertinent negatives listed in the HPI. Past Medical/Surgical History Medical Problems: (1) Chronic cholecystitis (2) Chronic liver disease (3) Diabetes mellitus (4) Diabetic peripheral neuropathy (5) Heart disease (6) Hypertension Family History Diabetes mellitus FATHER MOTHER FH: gallbladder disease MOTHER FHx: heart disease MOTHER Hypertension FATHER MOTHER Kidney disease MOTHER Jorge's disease Social History Smoking Status: Never Smoker Alcohol Use: other Drug Use: none Marital Status: Housing Status: lives with significant other Occupation Status: unemployed Current/Historical Medications Scheduled Cyanocobalamin (Vitamin B-12), 100 MCG PO DAILY Duloxetine Hcl (Cymbalta), 60 MG PO DAILY Finasteride (Finasteride), 5 MG PO DAILY Insulin Aspart (Novolog Flexpen), 1 DOSE SC UD Insulin Glargine (Lantus Solostar), 10 SC BID Lidocaine (Lidoderm Patch 5%), 1 PATCH TOP UD Lisinopril (Prinivil), 5 MG PO DAILY Metformin Hcl (Glucophage Ext Rel), 1,000 MG PO BID Methylprednisolone (Medrol Dosepak), 1 PKT PO UD Morphine Sulfate (Morphine Sulfate Er), 1 TAB PO Q12 Multivitamin (Multivitamin), 1 TAB PO DAILY Pregabalin (Lyrica), 100 MG PO TID Tamsulosin Hcl (Flomax), 0.8 MG PO QPM Tolterodine Tartrate (Tolterodine Tartrate), 2 MG PO BID Scheduled PRN Diclofenac Sodium (Topical) (Voltaren 1% Top Gel), 2 GM TOP QID PRN for Pain Oxycodone Hcl (Oxycodone Hcl), 10 MG PO Q6 PRN for Pain Polyethylene Glycol 3350 (Miralax), 17 GM PO DAILY PRN for CONSTIPATION Allergies Coded Allergies: No Known Allergies (Unverified , 07/17/16) Physical Exam Vital Signs Date Time Temp Pulse Resp B/P Pulse Ox O2 Delivery O2 Flow Rate FiO2 07/17/16 17:51 68 18 160/100 96 Room Air 07/17/16 15:47 69 18 138/109 96 Room Air 07/17/16 14:19 72 149/91 94 07/17/16 12:37 37.0 80 18 157/91 99 Physical Exam VITALS: Vitals are noted on the nurse's note and reviewed by myself. Vital signs stable. The patient is afebrile. GENERAL: This is a 60-year-old male, in no acute distress, nondiaphoretic, well- developed well-nourished. SKIN: The skin was without rashes, erythema, edema, or bruising. There is no tenting of the skin. Capillary reflex less than 2 seconds. HEAD: Normocephalic atraumatic. EARS: The external ears are normal in appearance. EYES: Pupils equal round and reactive to light and accommodation. Conjunctivae without injection, sclerae without icterus. Extraocular movements intact. NOSE: Patent, turbinates without inflammation or discharge. MOUTH: Mucous membranes moist. Tonsils are not enlarged. Pharynx without erythema or exudate. Uvula midline. Airway patent. Tongue does not deviate. NECK: Supple without nuchal rigidity. No lymphadenopathy. No thyromegaly. Cervical spine is nontender. No JVD. HEART: Regular rate and rhythm without murmurs gallops or rubs. LUNGS: Clear to auscultation bilaterally without wheezes, rales or rhonchi. No retractions or accessory muscle use. ABDOMEN: Positive bowel sounds x 4. Soft, marked diffuse tenderness without masses or organomegaly. MUSCULOSKELETAL: No muscle atrophy, erythema, or edema noted. Full range of motion in all extremities. Strength 5/5 throughout. NEURO: Patient was alert and oriented to person place and time. No focal neurological deficits. Medical Decision & Procedures ER Provider Diagnostic Interpretation: CHEST ONE VIEW PORTABLE HISTORY: Generalized abdominal pain COMPARISON: Chest 01/26/2016. FINDINGS: The lungs are clear. Cardiac silhouette is normal in size. No pleural effusions. No pneumothorax. IMPRESSION: No acute process. Laboratory Results 07/17/16 12:50 Red Blood Count 5.26, Mean Corpuscular Volume 86.9, Mean Corpuscular Hemoglobin 30.4, Mean Corpuscular Hemoglobin Concent 35.0, Mean Platelet Volume 9.3, Neutrophils (%) (Auto) 71.1, Lymphocytes (%) (Auto) 18.4, Monocytes (%) (Auto) 9.2, Eosinophils (%) (Auto) 0.7, Basophils (%) (Auto) 0.3, Neutrophils # (Auto) 4.79, Lymphocytes # (Auto) 1.24, Monocytes # (Auto) 0.62, Eosinophils # (Auto) 0.05, Basophils # (Auto) 0.02 07/17/16 12:50 Test 07/17/16 12:50 07/17/16 13:59 07/17/16 14:00 07/17/16 14:45 White Blood Count 6.74 K/uL (4.8-10.8) Red Blood Count 5.26 M/uL (4.7-6.1) Hemoglobin 16.0 g/dL (14.0-18.0) Hematocrit 45.7 % (42-52) Mean Corpuscular Volume 86.9 fL (80-100) Mean Corpuscular Hemoglobin 30.4 pg (25-34) Mean Corpuscular Hemoglobin Concent 35.0 g/dl (32-36) Platelet Count 240 K/uL (130-400) Mean Platelet Volume 9.3 fL (7.4-10.4) Neutrophils (%) (Auto) 71.1 % Lymphocytes (%) (Auto) 18.4 % Monocytes (%) (Auto) 9.2 % Eosinophils (%) (Auto) 0.7 % Basophils (%) (Auto) 0.3 % Neutrophils # (Auto) 4.79 K/uL (1.4-6.5) Lymphocytes # (Auto) 1.24 K/uL (1.2-3.4) Monocytes # (Auto) 0.62 K/uL (0.11-0.59) Eosinophils # (Auto) 0.05 K/uL (0-0.5) Basophils # (Auto) 0.02 K/uL (0-0.2) RDW Standard Deviation 42.6 fL (36.4-46.3) RDW Coefficient of Variation 13.3 % (11.5-14.5) Immature Granulocyte % (Auto) 0.3 % Immature Granulocyte # (Auto) 0.02 K/uL (0.00-0.02) Erythrocyte Sedimentation Rate 3 mm/hr (0-14) Anion Gap 8.0 mmol/L (3-11) Est Creatinine Clear Calc Drug Dose 122.6 ml/min Estimated GFR () 128.4 Estimated GFR (Non- 110.8 BUN/Creatinine Ratio 11.2 (10-20) Calcium Level 9.3 mg/dl (8.5-10.1) Magnesium Level 1.8 mg/dl (1.8-2.4) Total Bilirubin 0.7 mg/dl (0.2-1) Aspartate Amino Transf (AST/SGOT) 21 U/L (15-37) Alanine Aminotransferase (ALT/SGPT) 30 U/L (12-78) Alkaline Phosphatase 77 U/L (45-117) Total Creatine Kinase 66 U/L (39-308) Troponin I < 0.015 ng/ml (0-0.045) C-Reactive Protein < 0.29 mg/dl (0-0.29) Total Protein 7.3 gm/dl (6.4-8.2) Albumin 4.1 gm/dl (3.4-5.0) Globulin 3.2 gm/dl (2.5-4.0) Albumin/Globulin Ratio 1.3 (0.9-2) Lipase 210 U/L (73-393) Chemistry Specimen Hemolysis Bedside Glucose 107 mg/dl (70-99) Lactic Acid Level 1.0 mmol/L (0.4-2.0) Prothrombin Time 11.4 SECONDS (9.0-12.0) Prothromb Time International Ratio 1.1 (0.9-1.1) Activated Partial Thromboplast Time 27.3 SECONDS (21.0-31.0) Partial Thromboplastin Ratio 1.1 Test 07/17/16 15:21 Urine Color YELLOW Urine Appearance CLEAR (CLEAR) Urine pH 6.5 (4.5-7.5) Urine Specific [place] 1.012 (1.000-1.030) Urine Protein NEG (NEG) Urine Glucose (UA) NEG (NEG) Urine Ketones TRACE (NEG) Urine Occult Blood NEG (NEG) Urine Nitrite NEG (NEG) Urine Bilirubin NEG (NEG) Urine Urobilinogen NEG (NEG) Urine Leukocyte Esterase NEG (NEG) Medications Administered Medications (Trade) Dose Ordered Sig/Ada Route Start Time Stop Time Status Last Admin Dose Admin Ondansetron HCl 4 mg 4 mg NOW STAT IV 07/17/16 12:55 07/17/16 12:57 DC 07/17/16 14:18 4 MG Sodium Chloride (Nss 1000ml) 1,000 ml @ 999 mls/hr Q1H1M STAT IV 07/17/16 13:30 07/17/16 14:30 DC 07/17/16 14:17 999 MLS/HR Hydromorphone HCl (Dilaudid Inj) 1 mg NOW STAT IV 07/17/16 13:30 07/17/16 13:33 DC 07/17/16 14:18 1 MG Hydromorphone HCl (Dilaudid Inj) 1 mg NOW STAT IV 07/17/16 15:40 07/17/16 15:41 DC 07/17/16 15:45 1 MG Dexamethasone Sodium Phosphate (Decadron Inj) 8 mg NOW ONCE IV 07/17/16 18:00 07/17/16 18:01 DC 07/17/16 17:56 8 MG Procedure The patient was monitored on a economic research assistant. They maintained a normal sinus rhythm without ectopy. ECG Indication: abdominal pain Rate (beats per minute): 75 Rhythm: normal sinus Findings: no acute ischemic change Change: no significant change ED Course The patient was seen and examined. Previous visits were reviewed. The patient does not have a fever or leukocytosis. He does not have any significant electrolyte abnormality. Sedimentation rate and CRP were not elevated. Lactic acid was not elevated at 1.0. Cardiac enzymes were within normal limits. Lipase was not elevated. INR was 1.1. Urinalysis reveals ketones. Chest x-ray does not reveal any acute abnormality MRI enterography that was performed today was read by the radiologist and reviewed. There is no significant change in the appearance of the abdomen. 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 There is no evidence for bowel obstruction. There is mild jejunal fold thickening which is of questionable clinical significance. There is no abscess. There is also persistent mild mesenteric infiltration with associated mesenteric lymph nodes. The patient was hydrated with normal saline. He was given 4 mg IV Zofran He will given a total of 2 mg IV Dilaudid in 2 separate doses and the patient was able to rest comfortably He was given 8 mg IV Decadron The patient presents to the emergency department with ongoing left-sided abdominal pain since December. He has had significant evaluation and seen multiple specialists with no cause found. The patient does have some abnormal findings on imaging which are of questionable significance. This could be related to the findings on imaging, possibly neuropathic pain, adhesions; the exact etiology is not clear at this time. The patient will need further evaluation and management. The patient sees pain management and takes narcotics for his pain. The patient has not been taking his narcotics for the last 2 days as he is to have a gastric emptying study tomorrow. This is what prompted his visit as he has had increasing pain. He does not feel that he will be able to have the gastric emptying study done tomorrow and requested that it be canceled. This was done by case management. The patient does not feel that he'll be able to manage his pain at home. At this time, I discussed the case with the hospitalist service and they evaluated the patient. They spoke with Dr. Rivero and plan to have the patient follow up with pain management. They feel that he can be discharged home. The patient is in agreement. He stated that steroids helped him significantly when he was here last. He was given 8 mg IV Decadron and a prescription for Medrol Dosepak. The patient was advised to monitor his glucose very closely. The patient should return to the ER if any worsening symptoms. The case was discussed with Dr. Gunter who agrees with the assessment and she landed Medical Decision DIFFERENTIAL DIAGNOSIS: Hepatitis, cholecystitis, cholangitis, biliary colic, pancreatitis, pneumonia, subdiaphragmatic abscess, appendicitis, inguinal hernia , nephrolithiasis, inflammatory bowel disease, mesenteric adenitis, peptic ulcer disease, GERD, gastritis, pancreatitis, myocardial infarction, pericarditis, ruptured aortic aneurysm, appendicitis, gastroenteritis, bowel obstruction, splenic infarct, diverticulitis, mesenteric ischemia, metabolic, peritonitis, among others. Impression Primary Impression: Chronic abdominal pain Departure Information Dispostion Home / Self-Care Condition GOOD Prescriptions Methylprednisolone (MEDROL DOSEPAK) 4 Mg Alberto 1 PKT PO UD, #1 PKT Prov: Sonam Koch PA-C 07/17/16 Referrals Tasneem Youngblood DO (PCP) Up[place]. Ross M.D. Patient Instructions [facility] Additional Instructions Resume your pain medications Medrol Dosepak as prescribed; monitoring her sugar closely Follow up with pain management as discussed with the hospitalist service Return if any worsening symptoms
[2016-07-17 13:52] LABS: ALB/GLOB RATIO 1.3 (0.9-2); BUN/CREATININE RATIO 11.2 (10-20); CALCIUM 9.3 mg/dl (8.5-10.1); CREATININE 0.58 mg/dl (0.60-1.40); POTASSIUM 4.3 mmol/L (3.5-5.1)
--- NOTE | 2016-07-17 13:58 | DIAGNOSTIC IMAGING REPORT ---
CHEST ONE VIEW PORTABLE HISTORY: Generalized abdominal pain COMPARISON: Chest 01/26/2016. FINDINGS: The lungs are clear. Cardiac silhouette is normal in size. No pleural effusions. No pneumothorax. IMPRESSION: No acute process. Electronically signed by: Yao Romo M.D. 07/17/2016 1:56 PM Dictated Date/Time: 07/17/2016 1:53 PM
[2016-07-17 14:17] LABS: C-REACTIVE PROTEIN < 0.29 mg/dl (0-0.29); MAGNESIUM 1.8 mg/dl (1.8-2.4)
[2016-07-17 15:06] LABS: INR 1.1 (0.9-1.1); PARTIAL THROMBOPLASTIN RATIO 1.1; PROTHROMBIN TIME (PATIENT) 11.4 SECONDS (9.0-12.0)
[2016-07-17 15:38] LABS: URINE APPEARANCE CLEAR (CLEAR); URINE BILIRUBIN NEG (NEG); URINE COLOR YELLOW; URINE NITRITE NEG (NEG); URINE PH 6.5 (4.5-7.5); URINE SPECIFIC GRAVITY 1.012 (1.000-1.030); UROBILINOGEN NEG (NEG); ZZUR CULT IF INDIC CLEAN CATCH NO
[2016-07-17 15:40] LABS: MANUAL MICROSCOPIC REQUIRED? NO; REVIEW REQ? NO
[2016-07-17] MEDS ORDERED: METH4PAK PO (17:47)
[2016-07-17 17:51] VITALS: BP 160/100; PULSE 68; O2SAT 96
[2016-07-17] MEDS ORDERED: DEXAMETHASONE SOD INJ 10 MG/ML VIAL IV ONE (18:00)
--- NOTE | 2016-07-17 19:22 | Medical Consult ---
Consultation Date of Consultation: July 17, 2016. Attending Physician: Dr. More Reason for Consultation: Intractable abdominal pain History of Present Illness 60-year-old male with past medical history of chronic abdominal pain which started about December in 2015 presented to the ER with complaints of intractable left upper quadrant abdominal pain. He stated that he had recently been seeing gastroenterology for the abdominal pain and was required to hold his narcotic pain medications for MRI and gastric empty study which was planned tomorrow. He had undergone the MRI enterography this morning for which he had to lay flat on his stomach and that had exacerbated his pain. He also complained of back pain with numbness and tingling in his lower extremities below the knees. He stated that he had seen several specialists in [facility] and had several studies done and also had a cholecystectomy but his pain continued. He denied any fevers or chills, nausea or vomiting , diarrhea or constipation, bowel or bladder incontinence . In the ER he had received 2 doses of 1 mg IV Dilaudid which had relieved his pain significantly. His CBC and chemistry panel including troponins were unremarkable. Past Medical/Surgical History Medical Problems: (1) Chronic abdominal pain Status: Acute (2) Chronic back pain Status: Acute (3) Intractable back pain Status: Acute (4) Postoperative abdominal pain Status: Acute (5) Right hip pain Status: Acute Family History Diabetes mellitus FATHER MOTHER FH: gallbladder disease MOTHER FHx: heart disease MOTHER Hypertension FATHER MOTHER Kidney disease MOTHER Jorge's disease Social History Smoking Status: Never Smoker Drug Use: none Marital Status: Housing Status: lives with significant other Occupation Status: unemployed Allergies Coded Allergies: No Known Allergies (Unverified , 07/17/16) Home Medications Reported Home Medications Medications Dose Route/Sig Max Daily Dose Days Date Category Dose Instructions Medrol Dosepak (Methylprednisolone) 4 Mg Alberto 1 Pkt PO UD 07/17/16 Rx Cymbalta (Duloxetine Hcl) 60 Mg Cap 60 Mg PO DAILY 07/17/16 Reported Vitamin B-12 (Cyanocobalamin) 100 Mcg Tab 100 Mcg PO DAILY 06/06/16 Reported Lyrica (Pregabalin) 100 Mg Cap 100 Mg PO TID 06/06/16 Reported Tolterodine Tartrate 2 Mg Tab 2 Mg PO BID 06/02/16 Reported Oxycodone Hcl 10 Mg Tab 10 Mg PO Q6 PRN 06/02/16 Reported Novolog Flexpen (Insulin Aspart) 100 Units/Ml Inj 1 Dose SC UD 06/02/16 Reported give per sliding scale bs 150-200, give 2 units bs 201-240, give 4 units bs 241-280, give 6 units bs 281-320, give 8 units bs 321-360, give 10 units bs 361-400, give 12 units bs >400 call Lidoderm Patch 5% (Lidocaine) 1 Ea Tdsy 1 Patch TOP UD 06/02/16 Reported apply 1 patch to the affected area and leave in place for 12 hours, then remove and leave off for 12 hours Lantus Solostar (Insulin Glargine) 100 Unit/Ml Inj 10 SC BID 06/02/16 Reported Voltaren 1% Top Gel (Diclofenac Sodium (Topical)) 1 % Gel 2 Gm TOP QID PRN 06/02/16 Reported apply 2 gm 4 times daily as needed to affected joints Prinivil (Lisinopril) 5 Mg Tab 5 Mg PO DAILY 06/02/16 Reported Finasteride 5 Mg Tab 5 Mg PO DAILY 30 01/26/16 Rx Morphine Sulfate Er (Morphine Sulfate) 15 Mg Tab 1 Tab PO Q12 01/18/16 Reported Flomax (Tamsulosin Hcl) 0.4 Mg Cap 0.8 Mg PO QPM 01/17/16 Reported Multivitamin (Multivitamins) Tab 1 Tab PO DAILY 01/17/16 Reported Miralax (Polyethylene Glycol 3350) 1 Pow Pow 17 Gm PO DAILY PRN 01/17/16 Reported Glucophage Ext Rel (Metformin Hcl) 1,000 Mg Tab 1,000 Mg PO BID 01/17/16 Reported Current Inpatient Medications Reported Home Medications Medications Dose Route/Sig Max Daily Dose Days Date Category Dose Instructions Medrol Dosepak (Methylprednisolone) 4 Mg Alberto 1 Pkt PO UD 07/17/16 Rx Cymbalta (Duloxetine Hcl) 60 Mg Cap 60 Mg PO DAILY 07/17/16 Reported Vitamin B-12 (Cyanocobalamin) 100 Mcg Tab 100 Mcg PO DAILY 06/06/16 Reported Lyrica (Pregabalin) 100 Mg Cap 100 Mg PO TID 06/06/16 Reported Tolterodine Tartrate 2 Mg Tab 2 Mg PO BID 06/02/16 Reported Oxycodone Hcl 10 Mg Tab 10 Mg PO Q6 PRN 06/02/16 Reported Novolog Flexpen (Insulin Aspart) 100 Units/Ml Inj 1 Dose SC UD 06/02/16 Reported give per sliding scale bs 150-200, give 2 units bs 201-240, give 4 units bs 241-280, give 6 units bs 281-320, give 8 units bs 321-360, give 10 units bs 361-400, give 12 units bs >400 call Lidoderm Patch 5% (Lidocaine) 1 Ea Tdsy 1 Patch TOP UD 06/02/16 Reported apply 1 patch to the affected area and leave in place for 12 hours, then remove and leave off for 12 hours Lantus Solostar (Insulin Glargine) 100 Unit/Ml Inj 10 SC BID 06/02/16 Reported Voltaren 1% Top Gel (Diclofenac Sodium (Topical)) 1 % Gel 2 Gm TOP QID PRN 06/02/16 Reported apply 2 gm 4 times daily as needed to affected joints Prinivil (Lisinopril) 5 Mg Tab 5 Mg PO DAILY 06/02/16 Reported Finasteride 5 Mg Tab 5 Mg PO DAILY 30 01/26/16 Rx Morphine Sulfate Er (Morphine Sulfate) 15 Mg Tab 1 Tab PO Q12 01/18/16 Reported Flomax (Tamsulosin Hcl) 0.4 Mg Cap 0.8 Mg PO QPM 01/17/16 Reported Multivitamin (Multivitamins) Tab 1 Tab PO DAILY 01/17/16 Reported Miralax (Polyethylene Glycol 3350) 1 Pow Pow 17 Gm PO DAILY PRN 01/17/16 Reported Glucophage Ext Rel (Metformin Hcl) 1,000 Mg Tab 1,000 Mg PO BID 01/17/16 Reported Review of Systems Constitutional: No chills, No fever Eyes: No worsening of vision ENT: No hearing loss Respiratory: No cough, No shortness of breath, No sputum Cardiovascular: No chest pain Abdomen: + pain (left upper quadrant), No constipation, No diarrhea, No nausea , No vomiting Musculoskeletal: + joint pain Genitourinary - Male: No dysuria, No hematuria, No urinary frequency, No urinary urgency Neurologic: + numbness/tingling (bilateral lower extremities below knees), No memory loss Psychiatric: No depression symptoms Endocrine: No fatigue Hematologic / Lymphatic: No abnormal bleeding/bruising Physical Exam Date Time Temp Pulse Resp B/P Pulse Ox O2 Delivery O2 Flow Rate FiO2 07/17/16 17:51 68 18 160/100 96 Room Air 07/17/16 15:47 69 18 138/109 96 Room Air 07/17/16 14:19 72 149/91 94 07/17/16 12:37 37.0 80 18 157/91 99 General Appearance: WD/WN, no apparent distress Head: normocephalic Eyes: normal inspection ENT: normal ENT inspection, hearing grossly normal Neck: supple Respiratory/Chest: chest non-tender, lungs clear, normal breath sounds, no accessory muscle use Cardiovascular: regular rate, rhythm, no edema Abdomen/GI: normal bowel sounds, soft, + tenderness (left upper quadrant and left side of abdomen) Back: normal inspection, no CVA tenderness, normal range of motion Extremities/Musculoskelatal: normal inspection, no calf tenderness, no pedal edema, normal range of motion Neurologic/Psych: alert, normal mood/affect, oriented x 3, + sensory deficit ( bilateral lower extremity below knees) Skin: normal color Laboratory Results Last 24 Hours Test 07/17/16 12:50 07/17/16 13:59 07/17/16 14:00 07/17/16 14:45 White Blood Count 6.74 K/uL Red Blood Count 5.26 M/uL Hemoglobin 16.0 g/dL Hematocrit 45.7 % Mean Corpuscular Volume 86.9 fL Mean Corpuscular Hemoglobin 30.4 pg Mean Corpuscular Hemoglobin Concent 35.0 g/dl Platelet Count 240 K/uL Mean Platelet Volume 9.3 fL Neutrophils (%) (Auto) 71.1 % Lymphocytes (%) (Auto) 18.4 % Monocytes (%) (Auto) 9.2 % Eosinophils (%) (Auto) 0.7 % Basophils (%) (Auto) 0.3 % Neutrophils # (Auto) 4.79 K/uL Lymphocytes # (Auto) 1.24 K/uL Monocytes # (Auto) 0.62 K/uL Eosinophils # (Auto) 0.05 K/uL Basophils # (Auto) 0.02 K/uL RDW Standard Deviation 42.6 fL RDW Coefficient of Variation 13.3 % Immature Granulocyte % (Auto) 0.3 % Immature Granulocyte # (Auto) 0.02 K/uL Erythrocyte Sedimentation Rate 3 mm/hr Sodium Level 136 mmol/L Potassium Level 4.3 mmol/L Chloride Level 102 mmol/L Carbon Dioxide Level 26 mmol/L Anion Gap 8.0 mmol/L Blood Urea Nitrogen 6 mg/dl Creatinine 0.58 mg/dl Est Creatinine Clear Calc Drug Dose 122.6 ml/min Estimated GFR () 128.4 Estimated GFR (Non- 110.8 BUN/Creatinine Ratio 11.2 Random Glucose 121 mg/dl Calcium Level 9.3 mg/dl Magnesium Level 1.8 mg/dl Total Bilirubin 0.7 mg/dl Aspartate Amino Transf (AST/SGOT) 21 U/L Alanine Aminotransferase (ALT/SGPT) 30 U/L Alkaline Phosphatase 77 U/L Total Creatine Kinase 66 U/L Troponin I < 0.015 ng/ml C-Reactive Protein < 0.29 mg/dl Total Protein 7.3 gm/dl Albumin 4.1 gm/dl Globulin 3.2 gm/dl Albumin/Globulin Ratio 1.3 Lipase 210 U/L Chemistry Specimen Hemolysis Bedside Glucose 107 mg/dl Lactic Acid Level 1.0 mmol/L Prothrombin Time 11.4 SECONDS Prothromb Time International Ratio 1.1 Activated Partial Thromboplast Time 27.3 SECONDS Partial Thromboplastin Ratio 1.1 Test 07/17/16 15:21 Urine Color YELLOW Urine Appearance CLEAR Urine pH 6.5 Urine Specific [place] 1.012 Urine Protein NEG Urine Glucose (UA) NEG Urine Ketones TRACE Urine Occult Blood NEG Urine Nitrite NEG Urine Bilirubin NEG Urine Urobilinogen NEG Urine Leukocyte Esterase NEG Assessment & Plan 60-year-old male with past medical history of degenerative lumbar spine disease , peripheral neuropathy, type 2 diabetes, chronic left upper quadrant abdominal pain presented with complaints of intractable abdominal pain after holding his narcotic pain medications for gastric emptying study scheduled for tomorrow. He had an MRI enterography performed today which was unremarkable. His pain had been relieved on receiving 2 doses of IV Dilaudid. He stated that he had received a steroid burst during her previous visit to the ER which had significantly helped with this pain. After discussing with Dr. Ross, he was discharged and arrangements have been made to be seen in pain clinic in the following few days Recommended to restart his by mouth pain medications and follow-up with gastroenterology as scheduled Additional Copies To Tasneem Youngblood DO Reviewed: Pt Seen/Exam by Me History Resident Physician Supervision Note: I interviewed and examined the patient. Discussed with Dr. Kelley and agree with findings and plan as documented in the note. Any exceptions or clarifications are listed here: Patient presents to the ER with intractable left upper quadrant pain radiating around to the left flank that is chronic for the last 6 months but became more acute in the last 24 hours as he has been off of all of his home by mouth narcotics for a gastric emptying study that was planned for tomorrow. He also had to lay flat on his stomach for an MR enterography today which significantly exacerbated his pain. This patient is well-known to me as I had seen him during two previous hospital admissions. He has had significant problems with lower back pain with radiculopathy and bilateral lower extremity peripheral neuropathy and lower extremity weakness over the last year that is worsening. He has been seen by multiple specialists including neurology, pain management, and orthopedic spine surgeon. He went on to have his gallbladder removed in December 2015 and states that about 1 week after that he began having severe persistent left upper quadrant pain as above but has not relented ever since. He is on chronic daily by mouth opioids. 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 He was also supposed to have the gastric emptying study tomorrow. In the ER, he received 2 separate doses of Dilaudid 1 mg each and a dose of an antiemetic and he is back to his baseline pain which is manageable for him. He and his are both extremely frustrated with his chronic pain and not getting any answers for the cause or or treatment to help his pain other then by mouth opioids. We were asked to see by the ER PA to assess for admission. Vitals reviewed No acute distress, sitting in bed HEENT sclera anicteric, oropharynx clear Cardio: Regular rate and rhythm no murmurs Rubs Lungs Clear to Auscultation Bilaterally, Breathing Unlabored Abdomen Positive Bowel Sounds, Soft Positive Tenderness in the Left Upper Quadrant without Guarding or Rebound, No Hepatosplenomegaly Extremities with sarcopenia in the legs bilaterally 60-year-old male with a history of degenerative lumbar spine disease with radiculopathy and peripheral neuropathy, diabetes mellitus type 2, and now with chronic left abdominal and flank pain 6 months. I do not think that he needs to be admitted as his pain is now back to his baseline. He and his do say that when he was here a couple months ago and received some intramuscular dexamethasone followed by steroid burst that he had significant improvement in his symptoms. I have reached out to Dr. Chao Rivero of pain management and he or his PA will be able to see the patient in the next 1-2 days in the office to see if there is any interventional injections could be done as this sounds neuropathic type of pain. The patient and his are content with this plan. -I discussed the patient with the ER PA and she will order the dexamethasone to be given here and then a Medrol Dosepak to go home -He will resume his home by mouth medications and we'll cancel his outpatient gastric emptying study for tomorrow as he is unable to tolerate being off of pain meds for the study -He should follow-up with the senior financial reporting analyst as scheduled Documented By: Coleen More
[2016-10-01] MEDS ORDERED: B-COTAB18 PO (11:39)
[2016-11-05] MEDS ORDERED: MORP1CAP47 PO (09:59)
== END 2016-07-17 18:18 | disposition home or self-care (01) ==
LOC: C.EDB 12:37 → C.EDA 18:18
DX: R10.84 Generalized abdominal pain (principal); R11.0 Nausea; E11.9 Type 2 diabetes mellitus without complications; Z79.4 Long term (current) use of insulin; G62.9 Polyneuropathy, unspecified; I10 Essential (primary) hypertension

== ENCOUNTER → 2016-07-17 | Outpatient (CLI) | payer OTHER ==
[~2016-07-17] MED LIST changes: -AMT50 PO; +B-COTAB18 PO; +CYAN100T PO; +CYM/30 PO; +DICL1GEL12 TOP; -GABA-113 PO; +GADAVIST IV PRN; +INSDGIPEN SC; -INSU70IN2 SC; -LISI-725 PO; +LISI-729 PO; +METH4PAK PO; +MORP1CAP47 PO; +NF656 TOP; +NVLGI/PEN SC; +OXYC-164 PO; -OXYC1TAB3 PO; +PREG100C PO; +TOLT2TAB9 PO
--- NOTE | 2016-07-17 14:00 | DIAGNOSTIC IMAGING REPORT ---
ENTEROGRAPHY ABD/PELVIS COMBO CLINICAL HISTORY: Left upper quadrant pain. History of intestinal malrotation. COMPARISON STUDY: CT of the abdomen and pelvis June 02, 2016. TECHNIQUE: The patient ingested Volumen. 1.5 Leandra magnet and dedicated coil, multiplanar, multiecho imaging of the abdomen and pelvis was performed pre and postcontrast administration. Injection of 6.4 cc of Gadavist IV was uneventful. Post contrast imaging was performed utilizing dynamic enhancement. FINDINGS: The liver, spleen, adrenal glands, kidneys and pancreas are unremarkable. There is no biliary ductal dilatation status post cholecystectomy. 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 Mild mesenteric infiltration is unchanged as prior exams. Mild jejunal wall thickening is noted. This is nonspecific. There is no evidence for a bowel obstruction. No abscess is identified. No fistula is identified. There is no hydronephrosis. No pancreatic ductal dilatation is present. There is no perianal or perirectal abscess. IMPRESSION: 1. No significant change in appearance of the abdomen. 2. Congenital malrotation of the small bowel. No bowel obstruction. 3. Mild jejunal fold thickening which is of questionable clinical significance. No definite bowel wall thickening. No abscess. 4. No change in mild mesenteric infiltration with small associated mesenteric lymph nodes. Electronically signed by: Dylon Hardy M.D. 07/17/2016 1:58 PM Dictated Date/Time: 07/17/2016 11:54 AM
== END | disposition home or self-care (01) ==
LOC: C.MRIBC 08:50
PROVIDERS: ATTEND Internal Medicine Gastroenterology
DX: R10.12 Left upper quadrant pain (principal); Q43.3 Congenital malformations of intestinal fixation

== ENCOUNTER → 2016-07-20 | Outpatient (CLI) | payer OTHER ==
[~2016-07-20] MED LIST changes: +B-COTAB18 PO; -CYM/30 PO; +DULO60CA44 PO; +METH4PAK PO; +MORP1CAP47 PO
[2016-07-23 14:08] LABS: GLIADIN DEAMIDATED IgA AB 4 UNITS (<20); GLIADIN DEAMIDATED IgG AB 3 UNITS (<20)
[2016-07-25 16:35] LABS: IGA SERUM 197 mg/dL (81-463); TIS TRANS IGA 1 U/mL (<4)
--- NOTE | 2016-08-24 11:43 | CODING QUERY MEDICAL NECESSITY ---
SUPPORTING DIAGNOSIS NEEDED A supporting diagnosis is required for the test/procedure performed on this patient in order for us to be reimbursed by the patient's insurance. Please provide a supporting diagnosis for the following test/procedure listed below next to the test name along with your signature. *If there is no additional diagnosis for this patient that would support the following test/procedure please document that below next to the test/procedure. Test(s)/Procedure(s) that require a supporting diagnosis: DOS 07/20 * SIMA DIAGNOSIS: * Anti-Gliadin IgG & Iga ab DIAGNOSIS: Provider Signature: Date: Thank you Lenka Tsang Health Information Management Once completed, please kindly fax back to [phone] For questions please call [phone]
== END | disposition home or self-care (01) ==
LOC: C.LABPBG 08:37
PROVIDERS: ATTEND Internal Medicine Gastroenterology
DX: R10.9 Unspecified abdominal pain (principal); R93.8 Abnormal findings on diagnostic imaging of other specified body structures

== ENCOUNTER → 2016-07-26 | Outpatient (CLI) | payer OTHER ==
--- NOTE | 2016-07-26 08:51 | DIAGNOSTIC IMAGING REPORT ---
CHEST 2 VIEWS ROUTINE CLINICAL HISTORY: INTERCOSTAL NEURALGIA COMPARISON STUDY: 07/17/2016 FINDINGS: The cardiac and mediastinal contours are normal. There is no evidence of focal pulmonary consolidation. There is no evidence of failure. No pleural effusions are visualized.[ IMPRESSION: No active disease in the chest. Electronically signed by: Brian Johnston M.D. 07/26/2016 8:50 AM Dictated Date/Time: 07/26/2016 8:49 AM
== END | disposition home or self-care (01) ==
LOC: C.RADBC 08:38
PROVIDERS: ATTEND Anesthesiology
DX: G58.0 Intercostal neuropathy (principal)

== ENCOUNTER → 2016-08-17 | Outpatient (CLI) | payer OTHER ==
[~2016-08-17] MED LIST changes: -CYAN100T PO; -METH4PAK PO; -TOLT2TAB9 PO
[2016-08-17 14:08] LABS: BENZODIAZEPINE, URINE NEG (NEG); COCAINE,URINE NEG (NEG); PHENCYCLIDINE, URINE NEG (NEG)
[2016-08-20 01:50] LABS: COD UR NEGATIVE NG/ML (CUTOFF=50); HYDROCOD UR NEGATIVE NG/ML (CUTOFF=50); HYDROMOR UR NEGATIVE NG/ML (CUTOFF=50); MORPHINE UR 6480 NG/ML (CUTOFF=50); NORHYDROCODONE CONF UR NEGATIVE NG/ML (CUTOFF=50); OXYMORPH UR 427 NG/ML (CUTOFF=50)
== END | disposition home or self-care (01) ==
LOC: C.LABPBG 09:05
PROVIDERS: ATTEND Family Medicine
DX: M54.17 Radiculopathy, lumbosacral region (principal)

== ENCOUNTER → 2016-09-13 | Outpatient (CLI) | payer OTHER ==
--- NOTE | 2016-09-13 13:42 | DIAGNOSTIC IMAGING REPORT ---
CHEST 2 VIEWS ROUTINE CLINICAL HISTORY: R/O PNEUMOTHORAX S/P INJECTION COMPARISON STUDY: 07/26/2016 FINDINGS: The bones soft tissues and hemidiaphragms are normal. The cardiomediastinal silhouette is normal. The lungs are clear. The pulmonary vasculature is normal. IMPRESSION: Negative chest. Electronically signed by: Rubin Garcia M.D. 09/13/2016 1:40 PM Dictated Date/Time: 09/13/2016 1:40 PM
--- NOTE | 2016-10-04 07:04 | CODING QUERY NO DIAGNOSIS ---
TREATMENT RENDERED WITHOUT A DIAGNOSIS To promote full compliance with coding requirements relating to patient care, physician participation is requested in all cases of corporate services manager uncertainty. Please assist us with providing a diagnosis/symptom for the test(s) below: A diagnosis/symptom was not documented on your Order. A valid diagnosis/symptom is required to bill all insurances. Please remember that we are unable to code a diagnosis of rule out, probable, possible, questionable, or suspected. Tests that require a diagnosis: * CHEST 2 VIEWS ROUTINE DIAGNOSIS: Provider Signature: Date: Thank you Mariah Nazario [employer] Information [employer] Once completed, please kindly fax back to [phone] For questions please call [phone]
== END | disposition home or self-care (01) ==
LOC: C.RADBC 13:20
PROVIDERS: ATTEND Anesthesiology
DX: M79.2 Neuralgia and neuritis, unspecified (principal)

== ENCOUNTER → 2016-11-08 | Outpatient (CLI) | payer OTHER ==
[~2016-11-08] MED LIST changes: -MORP1TAB11 PO
[2016-11-08 12:48] LABS: ALT/SGPT 36 U/L (12-78); AST/SGOT 17 U/L (15-37); BLOOD UREA NITROGEN 11 mg/dl (7-18); BUN/CREATININE RATIO 15.1 (10-20); CARBON DIOXIDE 31 mmol/L (21-32); CHLORIDE 103 mmol/L (98-107); GLUCOSE 114 mg/dl (70-99); POTASSIUM 4.6 mmol/L (3.5-5.1); SODIUM 136 mmol/L (136-145)
[2016-11-08 12:59] LABS: ALB/GLOB RATIO 1.1 (0.9-2); ALKALINE PHOSPHATASE 80 U/L (45-117); CHOLESTEROL 173 mg/dl (0-200); CHOLESTEROL/HDL RATIO 3.5; HDL CHOLESTEROL 49 mg/dl; LDL CHOLESTEROL CALCULATED 109 mg/dl; THYROID STIMULATING HORMONE 0.952 uIu/ml (0.300-4.500); TRIGLYCERIDES 74 mg/dl (0-150); VERY LOW DENSITY LIPOPROT CALC 15 mg/dl
[2016-11-08 13:09] LABS: ESTIMATED AVERAGE GLUCOSE 137 mg/dl; HA1C FLAG Normal (Normal)
== END | disposition home or self-care (01) ==
LOC: C.LABPBG 10:02
PROVIDERS: ATTEND Family Medicine
DX: E11.65 Type 2 diabetes mellitus with hyperglycemia (principal)

== ENCOUNTER → 2016-12-10 | Outpatient (CLI) | payer OTHER | END | disposition home or self-care (01) | LOC: C.RDSM 11:00 | PROVIDERS: ATTEND Physical Medicine & Rehabilitation Sports Medicine | DX: M25.551 Pain in right hip (principal); M25.552 Pain in left hip ==

== ENCOUNTER 2017-04-22 13:33 | Emergency (ER) | payer OTHER ==
[~2017-04-22] VITALS: Ht 172.7 cm; Wt 87.5 kg
[~2017-04-22 13:33] MED LIST changes: -IPRA0.03 NAE; -LDDP5 TOP; -LISI-461 PO; -LYR100 PO; -SILD100T PO
[2017-04-22 13:38] VITALS: TEMP 36.5; Ht 172.7 cm; Wt 87.5 kg
[2017-04-22] MEDS ORDERED: ONDANSETRON INJ 2 MG/ML 2 ML VIAL IV STA (14:18)
[2017-04-22] MEDS ORDERED: SODIUM CHLORIDE 0.9% 500ML 500 ML IV STA (14:18)
[2017-04-22 14:24] LABS: BASO % 0.1 %; BASO ABS # 0.01 K/uL (0-0.2); EOS % 1.9 %; EOS ABS # 0.16 K/uL (0-0.5); HEMATOCRIT 43.1 % (42-52); HEMOGLOBIN 15.1 g/dL (14.0-18.0); IG# 0.03 K/uL (0.00-0.02); LYMPH % 19.9 %; LYMPH ABS # 1.68 K/uL (1.2-3.4); MEAN CELL VOLUME 85.2 fL (80-100); MEAN CORPUSCULAR HEMOGLOBIN 29.8 pg (25-34); MEAN PLATELET VOLUME 9.8 fL (7.4-10.4); MONO % 10.8 %; MONO ABS # 0.91 K/uL (0.11-0.59); NEUT % 66.9 %; NEUT ABS # 5.65 K/uL (1.4-6.5); PLATELET COUNT 226 K/uL (130-400); RED CELL DISTRIBUTION WIDTH CV 14.6 % (11.5-14.5); RED CELL DISTRIBUTION WIDTH SD 45.1 fL (36.4-46.3); WHITE BLOOD COUNT 8.44 K/uL (4.8-10.8)
[2017-04-22] MEDS ORDERED: OPTIRAY 320 IV PRN (14:30)
[2017-04-22 14:43] LABS: ALBUMIN 4.3 gm/dl (3.4-5.0); CALCIUM 9.3 mg/dl (8.5-10.1); CREATININE 0.85 mg/dl (0.60-1.40); POTASSIUM 3.8 mmol/L (3.5-5.1)
[2017-04-22 14:49] LABS: TOTAL PROTEIN 7.8 gm/dl (6.4-8.2)
[2017-04-22] MEDS ORDERED: LISI-461 PO (15:10)
[2017-04-22] MEDS ORDERED: IPRA0.03 NAE (15:10)
[2017-04-22] MEDS ORDERED: LDDP5 TOP (15:10)
[2017-04-22] MEDS ORDERED: INSDGIPEN SC (15:10)
[2017-04-22] MEDS ORDERED: LYR100 PO (15:10)
[2017-04-22] MEDS ORDERED: SILD100T PO (15:10)
--- NOTE | 2017-04-22 16:01 | DIAGNOSTIC IMAGING REPORT ---
ABD/PELVIS IV CONTRAST ONLY CLINICAL HISTORY: 61 years-old Male presenting with abd pain diffuse upper abd . TECHNIQUE: Multidetector CT of the abdomen and pelvis was performed after the administration of intravenous contrast. IV contrast: 115 mL of Optiray 320. A dose lowering technique was used consistent with the principles of ALARA (as low as reasonably achievable). COMPARISON: 06/02/2016. CT DOSE (mGy.cm): The estimated cumulative dose is 555.54 mGy.cm. FINDINGS: Drying Equipment Operator topogram: Cholecystectomy clips. Lung bases: Minimal basilar opacities, likely atelectasis. Mild multichamber enlargement of the heart. Coronary artery calcification. Small pericardial and bilateral pleural effusions. Liver: Normal morphology. No liver lesion. Patent hepatic vasculature. Biliary: Mild biliary ductal prominence likely a reservoir effect in the post cholecystectomy state. Gallbladder surgically absent. Pancreas: Mild parenchymal atrophy. Spleen: Normal. Adrenal glands: Normal. Kidneys and ureters: Subcentimeter hypodensity in the right kidney too small to characterize but likely cyst. Similar hypodensity also noted in the similar region in the left kidney. No nephrolithiasis. No hydronephrosis. Normal ureters. Bladder: Mild circumferential bladder wall thickening Pelvic organs: Prostate enlargement likely secondary to benign prostatic hyperplasia. Bowel: Mild wall thickening of the sigmoid colon suggested. Mild wall thickening of the hepatic flexure may be due to underdistention. The appendix is normal. No bowel obstruction. 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 Peritoneal cavity: No free fluid or intraperitoneal gas. Trace retroperitoneal fluid similar to prior. Extensive infiltration of the small bowel mesentery as on prior exam. Lymph nodes: Numerous subcentimeter mesenteric and retroperitoneal lymph nodes unchanged from prior exam. No pathologically enlarged lymph nodes by CT size criteria. Vasculature: Atherosclerosis of the normal caliber abdominal aorta. IVC patent. Abdominal wall: Nonspecific subcutaneous edema in the lumbar region. Musculoskeletal: Degenerative changes of the spine. IMPRESSION: 1. No significant change in persistent extensive infiltration of the small bowel mesentery with associated prominent, likely reactive lymph nodes. 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 Reactive retroperitoneal fluid unchanged. This can be variably symptomatic. 2. Mild wall thickening of the sigmoid colon without surrounding inflammatory change. This could suggest mild colitis, likely infectious. Alternatively, this could be due to underdistention. 3. Mild bladder wall thickening could suggest chronic outlet obstruction secondary to prostatomegaly. Correlate with urinalysis to exclude cystitis. 4. Small bilateral pleural effusions and small pericardial effusion. Electronically signed by: Joselo Otero M.D. 04/22/2017 4:00 PM Dictated Date/Time: 04/22/2017 3:53 PM
[2017-04-22 16:49] VITALS: BP 167/85; PULSE 70; O2SAT 93
--- NOTE | 2017-04-22 19:03 | EMERGENCY ROOM VISIT NOTE ---
History Report prepared by Claire: Jovani Correa Under the Supervision of: Dr. Avelino Crowley D.O. First contact with patient: 13:51 Chief Complaint: ABDOMINAL PAIN Stated Complaint: PAIN IN ABDOMEN, SOB History of Present Illness The patient is a 61 year old male who presents to the Emergency Room with complaints of persistent abdominal pain for the past week and a half ago. The patient additionally states that it is causing him to be short of breath, and he feels full in his stomach. He states that nothing makes the pain better or worse including twisting, turning, bending, eating, or drinking. The patient has a history of alcohol abuse for over 15 years, though he has not had any alcohol in the past year and a half, and he has never been diagnosed with cirrhosis. He was at his PCP this morning, and they ordered him a CT scan, though he has not gotten it yet. He has been to multiple doctors over the past, and he has never been diagnosed with anything. The patient takes morphine and oxycodone for generalized pain that started after having a cholecystectomy, and he also has neuropathy below the waist. The patient was supposed to have injections in his back the other day, though he was unable to since he had sores on his legs. The patient additionally notes that he vomited yesterday, and he has had an episode of loose stools this morning. He is currently taking metformin, and he is not on any blood thinners. Pt denies headache, change in vision, fevers, runny nose, cough, chest pain, pain with urination, and melena. Source of History: patient, spouse/significant other Onset: a week and a half ago Position: abdomen Timing: other (persistent) Modifying Factors (Worsening): other (nothing) Modifying Factors (Relieving): other (nothing) Associated Symptoms: + SOB, + vomiting Review of Systems See HPI for pertinent positives & negatives. A total of 10 systems reviewed and were otherwise negative. Past Medical & Surgical Medical Problems: (1) Chronic cholecystitis (2) Chronic liver disease (3) Diabetes mellitus (4) Diabetic peripheral neuropathy (5) Heart disease (6) Hypertension Family History Diabetes mellitus FATHER MOTHER FH: gallbladder disease MOTHER FHx: heart disease MOTHER Hypertension FATHER MOTHER Kidney disease MOTHER Jorge's disease Social History Smoking Status: Never Smoker Alcohol Use: other Drug Use: none Marital Status: Housing Status: lives with significant other Occupation Status: unemployed Current/Historical Medications Scheduled Duloxetine Hcl (Cymbalta), 60 MG PO DAILY Finasteride (Finasteride), 5 MG PO DAILY Insulin Aspart (Novolog Flexpen), 1 DOSE SC UD Insulin Glargine (Lantus Solostar), 10 UNITS SC BID Insulin Glargine (Lantus Solostar), 10 UNITS SC BID Lidocaine (Lidocaine), 1 PATCH TOP Q12 Lisinopril (Zestril), 5 MG PO Q2D Metformin Hcl (Glucophage Ext Rel), 1,000 MG PO BID Morphine Sulfate (Sandra Ext Rel), 20 MG PO DAILY Multivitamin (Multivitamin), 1 TAB PO DAILY Pregabalin (Lyrica), 100 MG PO TID Sildenafil Citrate (Viagra), 50 MG PO PRN Tamsulosin Hcl (Flomax), 0.8 MG PO QPM Scheduled PRN Diclofenac Sodium (Topical) (Voltaren 1% Top Gel), 2 GM TOP QID PRN for Pain Ipratropium [place] (Nasal) (Ipratropium [place]), 2 SPRAYS JUSTA TID PRN for SOB/ Wheezing Oxycodone Hcl (Oxycodone Hcl), 5-10 MG PO Q6 PRN for Pain Allergies Coded Allergies: Gabapentin (Verified Allergy, Intermediate, other, 04/22/17) tremors Physical Exam Vital Signs Date Time Temp Pulse Resp B/P (MAP) Pulse Ox O2 Delivery O2 Flow Rate FiO2 04/22/17 16:49 70 18 167/85 93 04/22/17 14:25 67 15 164/87 95 Room Air 04/22/17 13:38 36.5 71 20 170/88 94 Room Air Physical Exam GENERAL:Chronically ill appearing, ambulating with walker, no acute distress, non-toxic. EYE EXAM: normal conjunctiva. OROPHARYNX: no exudate, no erythema, lips, buccal mucosa, and tongue normal and mucous membranes are moist NECK: supple, no nuchal rigidity, no adenopathy, non-tender LUNGS: Clear to auscultation. Normal chest wall mechanics HEART: no murmurs, S1 normal and S2 normal ABDOMEN: Slightly distended, abdomen soft, non-tender, normo-active bowel sounds , no masses, no rebound or guarding. BACK: Back is symmetrical on inspection and there is no deformity, no midline tenderness, no CVA tenderness. SKIN: no rashes and no bruising UPPER EXTREMITIES: upper extremities are grossly normal. LOWER EXTREMITIES: Mild pitting edema bilaterally. NEURO EXAM: Normal sensorium, cranial nerves II-XII grossly intact, normal speech, no gross weakness of arms, no gross weakness of legs. Medical Decision & Procedures ER Provider Diagnostic Interpretation: Radiology results as stated below per my review and the radiologist's interpretation: ABD/PELVIS IV CONTRAST ONLY CLINICAL HISTORY: 61 years-old Male presenting with abd pain diffuse upper abd . TECHNIQUE: Multidetector CT of the abdomen and pelvis was performed after the administration of intravenous contrast. IV contrast: 115 mL of Optiray 320. A dose lowering technique was used consistent with the principles of ALARA (as low as reasonably achievable). COMPARISON: 06/02/2016. CT DOSE (mGy.cm): The estimated cumulative dose is 555.54 mGy.cm. FINDINGS: [employer] Super[employer] topogram: Cholecystectomy clips. Lung bases: Minimal basilar opacities, likely atelectasis. Mild multichamber enlargement of the heart. Coronary artery calcification. Small pericardial and bilateral pleural effusions. Liver: Normal morphology. No liver lesion. Patent hepatic vasculature. Biliary: Mild biliary ductal prominence likely a reservoir effect in the post cholecystectomy state. Gallbladder surgically absent. Pancreas: Mild parenchymal atrophy. Spleen: Normal. Adrenal glands: Normal. Kidneys and ureters: Subcentimeter hypodensity in the right kidney too small to characterize but likely cyst. Similar hypodensity also noted in the similar region in the left kidney. No nephrolithiasis. No hydronephrosis. Normal ureters. Bladder: Mild circumferential bladder wall thickening Pelvic organs: Prostate enlargement likely secondary to benign prostatic hyperplasia. Bowel: Mild wall thickening of the sigmoid colon suggested. Mild wall thickening of the hepatic flexure may be due to underdistention. The appendix is normal. No bowel obstruction. 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 Peritoneal cavity: No free fluid or intraperitoneal gas. Trace retroperitoneal fluid similar to prior. Extensive infiltration of the small bowel mesentery as on prior exam. Lymph nodes: Numerous subcentimeter mesenteric and retroperitoneal lymph nodes unchanged from prior exam. No pathologically enlarged lymph nodes by CT size criteria. Vasculature: Atherosclerosis of the normal caliber abdominal aorta. IVC patent. Abdominal wall: Nonspecific subcutaneous edema in the lumbar region. Musculoskeletal: Degenerative changes of the spine. IMPRESSION: 1. No significant change in persistent extensive infiltration of the small bowel mesentery with associated prominent, likely reactive lymph nodes. 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 Reactive retroperitoneal fluid unchanged. This can be variably symptomatic. 2. Mild wall thickening of the sigmoid colon without surrounding inflammatory change. This could suggest mild colitis, likely infectious. Alternatively, this could be due to underdistention. 3. Mild bladder wall thickening could suggest chronic outlet obstruction secondary to prostatomegaly. Correlate with urinalysis to exclude cystitis. 4. Small bilateral pleural effusions and small pericardial effusion. Electronically signed by: Joselo Otero M.D. 04/22/2017 4:00 PM Dictated Date/Time: 04/22/2017 3:53 PM Laboratory Results 04/22/17 14:10 Red Blood Count 5.06, Mean Corpuscular Volume 85.2, Mean Corpuscular Hemoglobin 29.8, Mean Corpuscular Hemoglobin Concent 35.0, Mean Platelet Volume 9.8, Neutrophils (%) (Auto) 66.9, Lymphocytes (%) (Auto) 19.9, Monocytes (%) (Auto) 10.8, Eosinophils (%) (Auto) 1.9, Basophils (%) (Auto) 0.1, Neutrophils # (Auto ) 5.65, Lymphocytes # (Auto) 1.68, Monocytes # (Auto) 0.91, Eosinophils # (Auto ) 0.16, Basophils # (Auto) 0.01 04/22/17 14:10 Test 04/22/17 14:04 04/22/17 14:10 Urine Color YELLOW Urine Appearance CLEAR (CLEAR) Urine pH 5.5 (4.5-7.5) Urine Specific [place] 1.016 (1.000-1.030) Urine Protein NEG (NEG) Urine Glucose (UA) NEG (NEG) Urine Ketones TRACE (NEG) Urine Occult Blood NEG (NEG) Urine Nitrite NEG (NEG) Urine Bilirubin NEG (NEG) Urine Urobilinogen NEG (NEG) Urine Leukocyte Esterase NEG (NEG) Urine WBC (Auto) 1-5 /hpf (0-5) Urine RBC (Auto) 0-4 /hpf (0-4) Urine Hyaline Casts (Auto) 0 /lpf (0-5) Urine Epithelial Cells (Auto) 0-5 /lpf (0-5) Urine Bacteria (Auto) NEG (NEG) White Blood Count 8.44 K/uL (4.8-10.8) Red Blood Count 5.06 M/uL (4.7-6.1) Hemoglobin 15.1 g/dL (14.0-18.0) Hematocrit 43.1 % (42-52) Mean Corpuscular Volume 85.2 fL (80-100) Mean Corpuscular Hemoglobin 29.8 pg (25-34) Mean Corpuscular Hemoglobin Concent 35.0 g/dl (32-36) Platelet Count 226 K/uL (130-400) Mean Platelet Volume 9.8 fL (7.4-10.4) Neutrophils (%) (Auto) 66.9 % Lymphocytes (%) (Auto) 19.9 % Monocytes (%) (Auto) 10.8 % Eosinophils (%) (Auto) 1.9 % Basophils (%) (Auto) 0.1 % Neutrophils # (Auto) 5.65 K/uL (1.4-6.5) Lymphocytes # (Auto) 1.68 K/uL (1.2-3.4) Monocytes # (Auto) 0.91 K/uL (0.11-0.59) Eosinophils # (Auto) 0.16 K/uL (0-0.5) Basophils # (Auto) 0.01 K/uL (0-0.2) RDW Standard Deviation 45.1 fL (36.4-46.3) RDW Coefficient of Variation 14.6 % (11.5-14.5) Immature Granulocyte % (Auto) 0.4 % Immature Granulocyte # (Auto) 0.03 K/uL (0.00-0.02) Anion Gap 8.0 mmol/L (3-11) Est Creatinine Clear Calc Drug Dose 98.1 ml/min Estimated GFR () 109.0 Estimated GFR (Non- 94.0 BUN/Creatinine Ratio 13.1 (10-20) Calcium Level 9.3 mg/dl (8.5-10.1) Total Bilirubin 0.6 mg/dl (0.2-1) Direct Bilirubin 0.2 mg/dl (0-0.2) Aspartate Amino Transf (AST/SGOT) 35 U/L (15-37) Alanine Aminotransferase (ALT/SGPT) 52 U/L (12-78) Alkaline Phosphatase 75 U/L (45-117) Total Protein 7.8 gm/dl (6.4-8.2) Albumin 4.3 gm/dl (3.4-5.0) Lipase 156 U/L (73-393) Laboratory results per my review. Medications Administered Medications (Trade) Dose Ordered Sig/Ada Route Start Time Stop Time Status Last Admin Dose Admin Ondansetron HCl (Zofran Inj) 4 mg NOW STAT IV 04/22/17 14:18 04/22/17 14:19 DC 04/22/17 14:25 4 MG Sodium Chloride 500 ml @ 999 mls/hr Q31M STAT IV 04/22/17 14:18 04/22/17 14:48 DC 04/22/17 14:25 999 MLS/HR ECG Indication: abdominal pain Rate (beats per minute): 64 Rhythm: sinus rhythm Findings: no ectopy, other (normal axis) Comparison ECG Date: 07/17/16 Change: no significant change Change: Patient's EKG is interpreted by me. ED Course ED COURSE: Vital signs were reviewed and showed situational hypertension The patients medical record was reviewed The above diagnostic studies were performed and reviewed. ED treatments and interventions as stated above. 1355: The patient was evaluated in room B9. A complete history and physical examination was performed. 1418: Sodium Chloride 500 ml @ 999 mls/hr IV, Zofran 4mg IV 1631: Upon reevaluation, the patient is doing well.I discussed my findings with the patient and he understands and agrees with the treatment plan. Based on the patients age, coexisting illnesses, exam and lab findings the decision to treat as an outpatient was made. The patient remained stable while under my care. The patient appeared well at the time of discharge. Medical Decision Differential diagnoses includes but is not limited to gastritis, peptic ulcer disease, GERD, gallbladder disease, pancreatitis, small bowel obstruction, acute coronary syndrome, pericarditis, ischemic bowel, irritable bowel disease, irritable bowel syndrome, appendicitis, diverticulitis, malignancy, hernia, urinary tract infection, torsion, perforation, trauma, infectious. Patient is a 61-year-old male referred in by PCP for swelling in his abdomen associated with supraumbilical abdominal pain which is been present for 1.5 weeks. Previous cholecystectomy and notes that this pain has been intermittent since then. Last bowel movement was today. He vomited once several days ago. Does have a history of alcohol abuse. Has not drank in the past year. Patient notes that his abdomen is become so distended that feels like it pushing up into his chest and causing him to feel short of breath. No leg pain. CBC all BMP, LFTs, bilirubin lipase unremarkable. UA was negative. EKG was unchanged. He denies being short of breath but admits that the fullness in the stomach makes him feel like he can't take a deep breath. CT of the abdomen and pelvis shows no acute pathology. Based on the patient's symptoms he was updated at bedside and is discharged follow-up with PCP as an outpatient. Uncertain of the true cause of symptoms. There is no JVD. No rhonchi. Nothing to suggest overt failure. I do believe he is safe to go home. Discussed with Pt concerning signs and symptoms to watch out for. Pt was instructed to follow up with their PCP and discussed with the patient their option to return to the ED at anytime for persistent or worsening symptoms. The appropriate anticipatory guidance and out-patient management, including indications for return to the emergency department, were explained at length to the patient and understood. Medication Reconcilliation Current Medication List: was personally reviewed by me Blood Pressure Screening Patient's blood pressure: Elevated blood pressure Blood pressure disposition: Elevated BP felt to be situational Impression Primary Impression: Abdominal pain Scribe Attestation The scribe's documentation has been prepared under my direction and personally reviewed by me in its entirety. I confirm that the note above accurately reflects all work, treatment, procedures, and medical decision making performed by me. Departure Information Dispostion Home / Self-Care Referrals No Doctor, Assigned (PCP) Forms Call Back Authorization, HOME CARE DOCUMENTATION FORM, IMPORTANT VISIT INFORMATION Patient Instructions Abdominal Pain - [facility], [facility] Additional Instructions Please follow up with your primary care doctor with in the next 24 hours. Any worsening of your symptoms, please return to the ED immediately. This includes any fevers greater than 100.4, worsening pain, chest pain, shortness breath, persistent nausea, vomiting, unable to eat or drink, or any other concerning signs or symptoms from your standpoint. His take Tylenol or Motrin as needed for pain. Please follow-up with her PCP as stated above. Problem Qualifiers Primary Impression: Abdominal pain Abdominal location: unspecified location Qualified Codes: R10.9 - Unspecified abdominal pain
== END 2017-04-22 17:00 | disposition home or self-care (01) ==
LOC: C.EDB 13:35
DX: R10.9 Unspecified abdominal pain (principal); E11.40 Type 2 diabetes mellitus with diabetic neuropathy, unspecified; I10 Essential (primary) hypertension; K76.9 Liver disease, unspecified; F10.21 Alcohol dependence, in remission; Z79.84 Long term (current) use of oral hypoglycemic drugs; Z79.4 Long term (current) use of insulin; Z83.3 Family history of diabetes mellitus; Z82.49 Family history of ischemic heart disease and other diseases of the circulatory system; Z88.9 Allergy status to unspecified drugs, medicaments and biological substances

== ENCOUNTER → 2017-04-22 | Outpatient (CLI) | payer OTHER ==
[~2017-04-22] MED LIST changes: +IPRA0.03 NAE; +LDDP5 TOP; +LISI-461 PO; +LYR100 PO; -MORP1CAP47 PO; +MORP1CAP91 PO; -POLY335019 PO; +SILD100T PO
[2017-04-22 12:35] LABS: BASO % 0.2 %; BASO ABS # 0.01 K/uL (0-0.2); EOS % 1.6 %; EOS ABS # 0.09 K/uL (0-0.5); HEMATOCRIT 41.9 % (42-52); HEMOGLOBIN 14.3 g/dL (14.0-18.0); IG# 0.01 K/uL (0.00-0.02); LYMPH % 19.1 %; LYMPH ABS # 1.08 K/uL (1.2-3.4); MEAN CELL VOLUME 86.2 fL (80-100); MEAN CORPUSCULAR HEMOGLOBIN 29.4 pg (25-34); MEAN CORPUSCULAR HGB CONC 34.1 g/dl (32-36); MEAN PLATELET VOLUME 9.6 fL (7.4-10.4); MONO % 8.3 %; MONO ABS # 0.47 K/uL (0.11-0.59); NEUT % 70.6 %; PLATELET COUNT 215 K/uL (130-400); RED CELL DISTRIBUTION WIDTH CV 14.5 % (11.5-14.5); RED CELL DISTRIBUTION WIDTH SD 45.7 fL (36.4-46.3); WHITE BLOOD COUNT 5.66 K/uL (4.8-10.8)
[2017-04-22 13:25] LABS: ALBUMIN 3.9 gm/dl (3.4-5.0); ALT/SGPT 50 U/L (12-78); AST/SGOT 32 U/L (15-37); BLOOD UREA NITROGEN 12 mg/dl (7-18); CALCIUM 8.9 mg/dl (8.5-10.1); CARBON DIOXIDE 27 mmol/L (21-32); CREATININE 0.82 mg/dl (0.60-1.40); GLUCOSE 115 mg/dl (70-99); SODIUM 141 mmol/L (136-145)
[2017-04-22 13:35] LABS: ALKALINE PHOSPHATASE 74 U/L (45-117); CHOLESTEROL 200 mg/dl (0-200); LDL CHOLESTEROL CALCULATED 137 mg/dl; TOTAL PROTEIN 7.5 gm/dl (6.4-8.2)
== END | disposition home or self-care (01) ==
LOC: C.LABPBG 10:03
PROVIDERS: ATTEND Family Medicine
DX: R10.9 Unspecified abdominal pain (principal); R25.1 Tremor, unspecified; R26.9 Unspecified abnormalities of gait and mobility; R23.3 Spontaneous ecchymoses; G58.8 Other specified mononeuropathies

== ENCOUNTER 2019-08-31 18:09 | Observation (INO) ==
[2019-08-31] MEDS ORDERED: ASPIRIN CHEW 324 MG PO STA (18:52)
[2019-08-31] MEDS ORDERED: NITROGLYCERIN SL 0.4 MG/TAB TAB SL STA (18:52)
[2019-08-31 19:10] LABS: Basophils # (auto) 0.01 K/uL (0-0.2); Basophils % (auto) 0.2 %; Eosinophils # (auto) 0.07 K/uL (0-0.5); Eosinophils % (auto) 1.1 %; Hematocrit (blood only) 44.7 % (42-52); Hemoglobin 15.1 g/dL (14.0-18.0); Immature Granulocytes # (auto) 0.03 K/uL (0.00-0.02); Immature Granulocytes % (auto) 0.5 %; Lymphocytes # (auto) 1.38 K/uL (1.2-3.4); Lymphocytes % (auto) 21.3 %; Mean Corpuscular Hemoglobin 30.6 pg (25-34); Mean Corpuscular Hgb Conc 33.8 g/dL (32-36); Mean Corpuscular Volume 90.7 fL (80-100); Mean Platelet Volume 10.3 fL (7.4-10.4); Monocytes # (auto) 0.57 K/uL (0.11-0.59); Monocytes % (auto) 8.8 %; Neutrophils # (auto) 4.41 K/uL (1.4-6.5); Neutrophils % (auto) 68.1 %; Platelet Count 177 K/uL (130-400); RDW Coefficient of Variation 14.6 % (11.5-14.5); RDW Standard Deviation 48.6 fL (36.4-46.3); Red Blood Count 4.93 M/uL (4.7-6.1); White Blood Count 6.47 K/uL (4.8-10.8)
[2019-08-31 19:23] LABS: Partial Thromboplastin Ratio 0.8; Partial Thromboplastin Time 21.4 Seconds (21.0-31.0); Prothrombin Time 10.7 Seconds (9.0-12.0)
--- NOTE | 2019-08-31 19:33 | XRay Report ---
XR chest 1V portable CLINICAL HISTORY: Chest Pain pain COMPARISON STUDY: 12/16/2017 FINDINGS: The bones soft tissues and hemidiaphragms are normal. The cardiomediastinal silhouette is n ormal. The lungs are clear. The pulmonary vasculature is normal. IMPRESSION: Negative chest. ACT 112: Negative or not required by law. The above report was generated using voice recognition software. It may contain grammatical, syntax or spelling errors. Electronically signed by: Rubin Garcia M.D. 08/31/2019 7:32 PM
[2019-08-31 19:36] LABS: Alanine Aminotransferase 78 U/L (12-78); Alkaline Phosphatase 87 U/L (45-117); BUN Creatinine Ratio 16.4 (10-20); Bilirubin,Total 0.7 mg/dl (0.2-1); Blood Urea Nitrogen 19 mg/dl (7-18); Calcium 9.7 mg/dl (8.5-10.1); Carbon Dioxide 23 mmol/L (21-32); Chloride 103 mmol/L (98-107); Creatine Kinase MB 3.2 ng/ml (0.5-3.6); Creatinine Clr Calc Pharmacy 69.1 ml/min; Est GFR (African American) 78.1; Est GFR (Non-African American) 67.4; Glucose 185 mg/dl (70-99); Lipase 232 U/L (73-393); Sodium 134 mmol/L (136-145); Troponin I < 0.015 ng/ml (0-0.045)
--- NOTE | 2019-08-31 20:32 | History & Physical Report ---
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 Troponin is negative in the ED today. The patient will be admitted to telemetry for serial cardiac enzymes, serial EKG's, cardiac rhythm monitoring and a 2-D echocardiogram with Dopplers. The patient does report a specific episode in [place] when he was walking 4 to 5 miles where he had severe pain on left side which radiated to his neck and arm. Patient also notes he gets these types of pains on a fairly regular basis to make care with and without activity, but have been significantly less intense, but did not affect his ability to get around. We will consult cardiology for their opinion Present on Admission?: Yes (2) Diabetes mellitus type 2, uncontrolled: Hold Victoza. Reduce glargine from 40 to 30 units subcu at bedtime. Placed on Accu-Cheks before meals and at bedtime with NovoLog coverage per scale. Check hemoglobin A1c Present on Admission?: Yes (3) Hyperlipidemia: Continue atorvastatin 20 mg every morning. Check a fasting lipid panel Present on Admission?: Yes (4) Depression: Continue bupropion 75 mg p.o. twice daily and Lexapro 20 mg every morning Present on Admission?: Yes (5) Opioid dependence: Continue morphine extended release 15 mg p.o. every 12 hours. Hold oxycodone 5 mg every 12 hours as needed Present on Admission?: Yes (6) BPH loc w urin obs/LUTS: Continue finasteride 5 mg every morning and tamsulosin 0.8 mg p.o. every evening Present on Admission?: Yes (7) H/O alcohol abuse: Present on Admission?: Yes History of Present Illness Chief Complaint: Patient is referred to the emergency department by his PCPs office, after review of a recent EKG suggested an inferior wall NM that had been new compared to his previous EKGs Primary Care Provider: Tasneem Youngblood DO The patient is a 63-year-old male with a past medical history including alcohol abuse, BPH with urinary obstruction, fatty liver, functional gait disorder with tremor, foot drop, hyperlipidemia, diabetes mellitus type 2, depression, GERD, peripheral polyneuropathy, opioid dependence, hypertension, heart disease and diabetic peripheral neuropathy. The patient reports that he got an EKG performed by his psychiatrist earlier in the week prior to starting new medication, and the psychiatrist had referred him to his PCPs office due to concerns regarding abnormalities. This EKG suggested an inferior wall NM that was new since his most recent EKG. The patient reports that he had an episode while walking 4 to 5 miles in [place] where he developed severe left-sided chest pain that radiated into his neck and arm. He does report that he has had less intense similar discomfort over the past few months, including prior to the episode in [place]. These episodes may occur with or without activity, and re solve spontaneously. Allergies Allergy/AdvReac Type Severity Reaction Status Date / Time gabapentin Allergy Intermediate other Verified 08/31/19 19:50 Home Medications Home Medications Medication Instructions Recorded Confirmed Type alcohol swabs 1 pad TOPICAL TID #100 ea 09/05/18 08/31/19 Rx lidocaine 4 % topical patch 1 patch TOP Q12 PRN #6 ea 09/05/18 08/31/19 Rx miscellaneous medical supply #1 ea 10/30/18 08/31/19 Rx cholecalciferol (vitamin D3) 250 10,000 units PO QAM 11/17/18 08/31/19 History mcg (10,000 unit) capsule cyanocobalamin (vitamin B-12) 250 250 mcg PO QAM 11/17/18 08/31/19 History mcg tablet Dexcom G6 Skoog Operator #1 ea NS 01/19/19 08/31/19 Rx Dexcom G6 Sensor #3 ea NS 01/19/19 08/31/19 Rx Dexcom G6 Transmitter #1 ea NS 01/19/19 08/31/19 Rx aspirin 81 mg tablet,delayed 81 mg PO QAM 02/16/19 08/31/19 History release insulin aspart U-100 100 unit/mL 12 - 18 unit SUBCUT TIDM 02/16/19 08/31/19 History (3 mL) subcutaneous pen milliliter blood sugar diagnostic #100 ea 04/01/19 08/31/19 Rx lancets 30 gauge #200 ea 04/01/19 08/31/19 Rx insulin glargine 100 unit/mL (3 40 units SUBCUT QPM #15 ml 04/07/19 08/31/19 Rx mL) subcutaneous pen pen needle, diabetic 31 gauge x See Rx Instructions .ROUTE 07/01/19 08/31/19 Rx 5/16" .COMPLEX #100 unspecified bupropion HCl 75 mg tablet 75 mg PO BID tab 07/13/19 08/31/19 History escitalopram oxalate 20 mg tablet 20 mg PO QAM 07/13/19 08/31/19 History morphine 15 mg tablet,extended 15 mg PO Q12H #60 tab 08/25/19 08/31/19 Rx release oxycodone 5 mg tablet 5 mg PO Q12H PRN #60 tab 08/25/19 08/31/19 Rx atorvastatin [Lipitor] 20 mg PO QAM 08/31/19 08/31/19 History finasteride [Proscar] 5 mg PO QAM 08/31/19 08/31/19 History liraglutide [Victoza 3-Alberto] 0.6 mg SQ QAM 08/31/19 08/31/19 History lisinopril-hydrochlorothiazide 1 tab PO QAM 08/31/19 08/31/19 History multivitamin 1 tab PO QAM 08/31/19 08/31/19 History pantoprazole 40 mg PO QAM 08/31/19 08/31/19 History tadalafil 23.5 mg PO QAM 08/31/19 08/31/19 History tamsulosin [Flomax] 0.8 mg PO PM 08/31/19 08/31/19 History Past Med/Surg History Social History Preferred Language: Bangladeshi Communication Ability: Effective Visual Impairment: No Limitations Hearing Ability: Normal marital status: Current Living Situation: Spouse Current Living Situation Comment: , 3 dogs and 2 cats current occupational status: unemployed, retired and disabled Feels Safe at Home: Yes Smoking Status: Never smoker Second Hand Exposure: No ; Hx Alcohol Use: Yes Alcohol Intake Frequency: Rarely Hx Substance Use: No Childhood Exposure to Second-Hand Smoke: No Dental Care, Regularly: No Physical Activity Frequency: Other Physical Activity Frequency Comment: Limited due to physical condition. Seatbelt Use: always Review of Systems Review of Systems: The patient denies palpitations, shortness of breath, dyspnea on exertion, cough, lower extremity swelling, sore throat, fevers, chills, sweats, weight change, fatigue, nausea, vomiting, diarrhea , constipation, abdominal pain, pelvic pain, blood in urine or stool, dysuria, urinary frequency or urgency, lightheadedness, dizziness, headache, memory loss, loss of consciousness, rash, abnormal bruising or bleeding, imbalance, focal or generalized weakness, numbness or tingling in arms or legs, generalized arthralgias or myalgias, back or neck pain, or night sweats. The review of systems is otherwise negative other than for that already noted above, and at least 10 systems have been reviewed. Physical Exam Physical Exam: The patient is awake, alert and oriented 3, well developed and well nourished, normocephalic and atraumatic, sitting upright in bed, noted resting tremor, and otherwise in no acute distress. HEENT--PERRL, EOMI, mucous membranes and oropharynx normal. Neck--supple. No JVD. No bruits. Thyroid normal, trachea midline, no adenopathy. Heart--normal S1 and S2. No murmurs, rubs or gallops. Lungs--clear bilaterally, no respiratory distress, no accessory muscle use. Abdomen--normal bowel sounds and soft. Nontender. Nondistended. Extremities--no cyanosis or clubbing. No edema. Dermatologic--normal skin turgor, normal color, no abnormal lymph nodes, no rash. Neurologic--cranial nerves II through XII grossly intact. Rheumatologic--normal range of motion. Psychiatric--normal affect. Results & Data Results & Data ([facility]) Vital Signs (Past 12 Hours) Vital Signs Temp Resp Pulse Ox 08/31/19 18:12 97.7 F 18 97 Laboratory Results Laboratory Results WBC 6.47 K/uL (4.8-10.8) 08/31/19 18:49 RBC 4.93 M/uL (4.7-6.1) 08/31/19 18:49 Hgb 15.1 g/dL (14.0-18.0) 08/31/19 18:49 Hct 44.7 % (42-52) 08/31/19 18:49 MCV 90.7 fL (80-100) 08/31/19 18:49 MCH 30.6 pg (25-34) 08/31/19 18:49 MCHC 33.8 g/dL (32-36) 08/31/19 18:49 RDW Std Deviation 48.6 fL (36.4-46.3) H 08/31/19 18:49 RDW Coeff of Jonathan 14.6 % (11.5-14.5) H 08/31/19 18:49 Plt Count 177 K/uL (130-400) 08/31/19 18:49 MPV 10.3 fL (7.4-10.4) 08/31/19 18:49 Immature Gran % (Auto) 0.5 % 08/31/19 18:49 Neut % (Auto) 68.1 % 08/31/19 18:49 Lymph % (Auto) 21.3 % 08/31/19 18:49 [place] % (Auto) 8.8 % 08/31/19 18:49 Eos % (Auto) 1.1 % 08/31/19 18:49 Baso % (Auto) 0.2 % 08/31/19 18:49 Neut # (Auto) 4.41 K/uL (1.4-6.5) 08/31/19 18:49 Lymph # (Auto) 1.38 K/uL (1.2-3.4) 08/31/19 18:49 [place] # (Auto) 0.57 K/uL (0.11-0.59) 08/31/19 18:49 Eos # (Auto) 0.07 K/uL (0-0.5) 08/31/19 18:49 Baso # (Auto) 0.01 K/uL (0-0.2) 08/31/19 18:49 Immature Gran # (Auto) 0.03 K/uL (0.00-0.02) H 08/31/19 18:49 PT 10.7 Seconds (9.0-12.0) 08/31/19 18:49 INR 1.0 (0.9-1.1) 08/31/19 18:49 APTT 21.4 Seconds (21.0-31.0) 08/31/19 18:49 PTT Ratio 0.8 08/31/19 18:49 Sodium 134 mmol/L (136-145) L 08/31/19 18:49 Potassium mmol/L (3.5-5.1) 08/31/19 18:49 Chloride 103 mmol/L (98-107) 08/31/19 18:49 Carbon Dioxide 23 mmol/L (21-32) 08/31/19 18:49 Anion Gap 8.0 (3-11) 08/31/19 18:49 BUN 19 mg/dl (7-18) H 08/31/19 18:49 Creatinine 1.15 mg/dl (0.6-1.4) 08/31/19 18:49 Est Cr Clr Drug Dosing 69.1 ml/min 08/31/19 18:49 Est GFR ( Amer) 78.1 08/31/19 18:49 Est GFR (Non-Af Amer) 67.4 08/31/19 18:49 BUN/Creatinine Ratio 16.4 (10-20) 08/31/19 18:49 Glucose 185 mg/dl (70-99) H 08/31/19 18:49 Calcium 9.7 mg/dl (8.5-10.1) 08/31/19 18:49 Total Bilirubin 0.7 mg/dl (0.2-1) 08/31/19 18:49 AST U/L (15-37) 08/31/19 18:49 ALT 78 U/L (12-78) 08/31/19 18:49 Alkaline Phosphatase 87 U/L (45-117) 08/31/19 18:49 Total Creatine Kinase U/L (39-308) 08/31/19 18:49 CK-MB (CK-2) 3.2 ng/ml (0.5-3.6) 08/31/19 18:49 CK/CKMB % Calc TNP 08/31/19 18:49 Troponin I < 0.015 ng/ml (0-0.045) 08/31/19 18:49 Total Protein 8.0 gm/dl (6.4-8.2) 08/31/19 18:49 Albumin 4.0 gm/dl (3.4-5.0) 08/31/19 18:49 Globulin 4.0 gm/dl (2.5-4.0) 08/31/19 18:49 Albumin/Globulin Ratio 1.0 (0.9-2) 08/31/19 18:49 Lipase 232 U/L (73-393) 08/31/19 18:49 Diagnostic Findings [facility] [place] [phone] XRay Report Patient: JEFFRY OCHOA Date: 08/31/19 MR#: [id number]: [address] [address] Acct ID:[id number]: [address] Date: [address] [place] [address] Zip: [place] [address] Age: 63Location: ED Sex: M Room/Bed: Att Phy:Diagnosis: CHEST PAIN AND LEFT ARM PAIN, DRCorwin REFERRAL Mckenzie Phy: Tasneem Youngblood, DOService Date: 08/31/19 Fam Phy:Interpreting Phy: Rubin Garcia MD Admit Phy: Ordering Phy: Girish Paulino MD cc: ~ XR chest 1V portable CLINICAL HISTORY: Chest Pain pain COMPARISON STUDY: 12/16/2017 FINDINGS: The bones soft tissues and hemidiaphragms are normal. The cardiomediastinal silhouette is normal. The lungs are clear. The pulmonary vasculature is normal. IMPRESSION: Negative chest. ACT 112: Negative or not required by law. The above report was generated using voice recognition software. It may contain grammatical, syntax or spelling errors. Electronically signed by: Rubin Garcia M.D. 08/31/2019 7:32 PM Dictated: 08/31/191931 Transcribed: 08/31/191931 Code Status & VTE Plan Code Status Full code VTE Prophylaxis Plan VTE Prophylaxis will be ordered: Yes PG Care Time/CCT Total # of Minutes Spent Total Time Spent with Patient: Total time spent is greater than 50% in coordination of care (as documented) at patient's floor/unit and/or counseling patient: Coding Level of Care Code 32240 OBS Care - Level 3 Diagnoses Abnormal EKG R94.31 Diabetes mellitus type 2, uncontrolled E11.65 Hyperlipidemia E78.5 Depression F32.9 Opioid dependence F11.20 BPH loc w urin obs/LUTS N40.1 H/O alcohol abuse F10.11
--- NOTE | 2019-08-31 22:43 | Billing Data ---
Date of Service August 31, 2019 Coding Level of Care Code 04972 OBS Care - Level 3
[2019-08-31] MEDS ORDERED: GLUCOSE 10 TABS/TUBE PO PRN (22:50)
[2019-08-31] MEDS ORDERED: CARBOHYDRATES FOR HYPOGLYCEMIA PO PRN (22:50)
[2019-08-31] MEDS ORDERED: TAMSULOSIN HCL 0.4 MG CAP PO SCH (22:50)
[2019-08-31] MEDS ORDERED: GLUCOSE 40% GEL 15 GM TUBE PO PRN (22:50)
[2019-08-31] MEDS ORDERED: ACETAMINOPHEN 325 MG TAB PO PRN (22:50)
[2019-08-31] MEDS ORDERED: ALUMINUM/MAGNESIUM SUSP 30 ML UDC PO PRN (22:50)
[2019-08-31] MEDS ORDERED: DEXTROSE 50% 50 ML SYRINGE IV PRN (22:50)
[2019-08-31] MEDS ORDERED: ONDANSETRON INJ 2 MG/ML 2 ML VIAL IV PRN (22:50)
[2019-08-31] MEDS ORDERED: GLUCAGON FOR INJ 1 MG VIAL SQ PRN (22:50)
[2019-08-31] MEDS ORDERED: MAGNESIUM HYDROXIDE SUSP 30 ML UDC PO PRN (22:50)
[2019-08-31] MEDS ORDERED: INSULIN GLARGINE SOLOSTAR 100 UNITS/ML 3 ML PEN SQ SCH (23:00)
[2019-09-01] MEDS: MoRPHine SULFATE CR 15 MG TABCR PO SCH ×2 (00:22→08:54)
[2019-09-01] MEDS: buPROPion HCl 75 MG TABLET PO SCH ×2 (00:35→08:49)
[2019-09-01] MEDS: INSULIN ASPART 100 UNITS/ML 3 ML PEN SC SCH ×3 (00:37→12:36)
[2019-09-01 04:50] LABS: Partial Thromboplastin Time 27.8 Seconds (21.0-31.0); Prothrombin Time 10.8 Seconds (9.0-12.0)
[2019-09-01 04:56] LABS: Albumin Level 3.6 gm/dl (3.4-5.0); BUN Creatinine Ratio 19.8 (10-20); Creatinine Clr Calc Pharmacy 77.9 ml/min; Est GFR (African American) 92.4; Est GFR (Non-African American) 79.7; Magnesium 1.9 mg/dl (1.8-2.4); Phosphorus 2.9 mg/dl (2.5-4.9)
[2019-09-01 05:09] LABS: Basophils # (auto) 0.02 K/uL (0-0.2); Basophils % (auto) 0.3 %; Eosinophils # (auto) 0.08 K/uL (0-0.5); Eosinophils % (auto) 1.1 %; Hematocrit (blood only) 47.9 % (42-52); Hemoglobin 15.8 g/dL (14.0-18.0); Immature Granulocytes # (auto) 0.03 K/uL (0.00-0.02); Immature Granulocytes % (auto) 0.4 %; Lymphocytes # (auto) 1.99 K/uL (1.2-3.4); Lymphocytes % (auto) 27.4 %; Mean Corpuscular Hemoglobin 30.4 pg (25-34); Mean Corpuscular Volume 92.1 fL (80-100); Mean Platelet Volume 9.6 fL (7.4-10.4); Monocytes # (auto) 0.68 K/uL (0.11-0.59); Monocytes % (auto) 9.4 %; Neutrophils # (auto) 4.45 K/uL (1.4-6.5); Neutrophils % (auto) 61.4 %; Platelet Count 297 K/uL (130-400); RDW Coefficient of Variation 14.4 % (11.5-14.5); RDW Standard Deviation 49.1 fL (36.4-46.3); Tear Drop Cells 2+; White Blood Count 7.25 K/uL (4.8-10.8)
[2019-09-01 05:58] LABS: Estimated Average Glucose 171 mg/dl; Hemoglobin A1C 7.6 % (4.5-5.6)
[2019-09-01] MEDS ORDERED: FINASTERIDE 5 MG TAB PO SCH (09:00)
[2019-09-01] MEDS ORDERED: ATORVASTATIN 20 MG TAB PO SCH (09:00)
[2019-09-01] MEDS ORDERED: MULTIVITAMIN TAB PO SCH (09:00)
[2019-09-01] MEDS ORDERED: CYANOCOBALAMIN 500 MCG TABLET (VITAMIN B-12) PO SCH (09:00)
[2019-09-01] MEDS ORDERED: PANTOprazole 40 MG TAB PO SCH (09:00)
[2019-09-01] MEDS ORDERED: CHOLECALCIFEROL 1,000 UNITS 25 MCG TAB PO SCH ×2 (09:00)
[2019-09-01] MEDS ORDERED: ESCITALOPRAM OXALATE 20 MG TAB PO SCH (09:00)
[2019-09-01] MEDS ORDERED: LISINOPRIL/HCTZ 10/12.5MG TAB PO SCH (09:00)
[2019-09-01] MEDS ORDERED: ASPIRIN 81 MG ECTAB PO SCH (09:00)
--- NOTE | 2019-09-01 09:33 | XCELERA ---
[id number]
--- NOTE | 2019-09-01 10:40 | Cardiology Consultation ---
Date of Consultation September 01, 2019 Assessment & Plan (1) Chest pain: Patient is a 63 year old male with PMHx Diabetes Mellitus 2, H/O Alcohol abuse, Hyperlipidemia, Depression, Hypertension, and BPH with obstruction who was consulted on for concerns of an abnormal EKG from his Psychiatrists office and L sided chest pain/shoulder pain that radiated to the arm and neck. Chest pain with concerns for Abnormal EKG -Repeat EKG today unchanged since prior EKG last November 2018 -TTE negative for wall motion abnormalities -Troponin x3 were undetectable -Will exercise stress patient today Hypertension -Continue Prinzide for blood pressure control Hyperlipidemia -Continue ASA -Continue Atorvastatin DM2 -Insulin management per primary team -HgbA1C 7.6 (2) Diabetes mellitus type 2, uncontrolled: (3) Abnormal EKG: (4) Hyperlipidemia: (5) Hypertension: Supervising Physician Co-Signing Physician Notes Pt seen and examined with Dr. Dyer. Agree with his assessment and plan. Stress echo today. History of Present Illness Reason for Consultation: abnormal ekg, L CP to arm and neck Attending Physician: Avelino Paez, History of Present Illness Patient is a 63 year old male with PMHx Diabetes Mellitus 2, H/O Alcohol abuse, Hyperlipidemia, Depression, Hypertension, and BPH with obstruction who was consulted on for concerns of an abnormal EKG from his Psychiatrists office and L sided chest pain/shoulder pain that radiated to the arm and neck. Patient notes that he had an EKG completed recently by his Psychiatrist prior to being started on the medications Wellbutrin, Strattera, and Adderall. He states that at that time he was told by his Psychiatrist to see his PCP as the EKG was concerning for an old inferior wall HI. At his PCPs office, patient noted to them that he was still having some similar anginal like symptoms and he was referred to the ED for further work up. Patient states that he feels he had an incident back in the middle of July that he believes was a heart attack. He states that he had recently moved into his [facility] in [place] June 09 after from his now ex-. He notes that he had been walking a [address] time, when around mile 4 he noticed sharp, debilitating L chest and shoulder pain that made him SOB and diaphoretic, forcing him to stop to take a break. He states he then could only go roughly 300 yards at a time before taking breaks for the last mile back to his car. He states that the week following the chest pain and shoulder pain had relatively subsided and that it was mainly replaced with nausea. Currently patient states that he has some dyspnea on exertion, L shoulder pain, and chest pressure (which he believes has been ongoing x1 year). He notes the shoulder pain is a 5/10 sharp pain that radiates to his arm and neck. He denies any current chest pain or shortness of breath. Of note, patient states that he had recently stopped a majority of his medications on August 09 due to concerns of side effects. He states he only has continued taking his Prinzide, Morphine, Oxycodone, ASA, and vitamins. He notes that he stopped his Lexapro and prostate medications because he had "a majority of the side effects." Patient does not use tobacco or illicit drugs. He has a history of alcohol use starting at age 21 until 8 years ago of a 24 pack of b eer/week. Allergies Allergy/AdvReac Type Severity Reaction Status Date / Time gabapentin Allergy Intermediate other Verified 08/31/19 19:50 Home Medications Home Medications Medication Instructions Recorded Confirmed Type alcohol swabs 1 pad TOPICAL TID #100 ea 09/05/18 08/31/19 Rx lidocaine 4 % topical patch 1 patch TOP Q12 PRN #6 ea 09/05/18 08/31/19 Rx miscellaneous medical supply #1 ea 10/30/18 08/31/19 Rx cholecalciferol (vitamin D3) 250 10,000 units PO QAM 11/17/18 08/31/19 History mcg (10,000 unit) capsule cyanocobalamin (vitamin B-12) 250 250 mcg PO QAM 11/17/18 08/31/19 History mcg tablet Dexcom G6 Oil Filters Inspector #1 ea NS 01/19/19 08/31/19 Rx Dexcom G6 Sensor #3 ea NS 01/19/19 08/31/19 Rx Dexcom G6 Transmitter #1 ea NS 01/19/19 08/31/19 Rx aspirin 81 mg tablet,delayed 81 mg PO QAM 02/16/19 08/31/19 History release insulin aspart U-100 100 unit/mL 12 - 18 unit SUBCUT TIDM 02/16/19 08/31/19 History (3 mL) subcutaneous pen milliliter blood sugar diagnostic #100 ea 04/01/19 08/31/19 Rx lancets 30 gauge #200 ea 04/01/19 08/31/19 Rx insulin glargine 100 unit/mL (3 40 units SUBCUT QPM #15 ml 04/07/19 08/31/19 Rx mL) subcutaneous pen pen needle, diabetic 31 gauge x See Rx Instructions .ROUTE 07/01/19 08/31/19 Rx 07/24" .COMPLEX #100 unspecified bupropion HCl 75 mg tablet 75 mg PO BID tab 07/13/19 08/31/19 History escitalopram oxalate 20 mg tablet 20 mg PO QAM 07/13/19 08/31/19 History morphine 15 mg tablet,extended 15 mg PO Q12H #60 tab 08/25/19 08/31/19 Rx release oxycodone 5 mg tablet 5 mg PO Q12H PRN #60 tab 08/25/19 08/31/19 Rx atorvastatin [Lipitor] 20 mg PO QAM 08/31/19 08/31/19 History finasteride [Proscar] 5 mg PO QAM 08/31/19 08/31/19 History liraglutide [Victoza 3-Alberto] 0.6 mg SQ QAM 08/31/19 08/31/19 History lisinopril-hydrochlorothiazide 1 tab PO QAM 08/31/19 08/31/19 History multivitamin 1 tab PO QAM 08/31/19 08/31/19 History pantoprazole 40 mg PO QAM 08/31/19 08/31/19 History tadalafil 23.5 mg PO QAM 08/31/19 08/31/19 History tamsulosin [Flomax] 0.8 mg PO PM 08/31/19 08/31/19 History atorvastatin [Lipitor] 40 mg PO DAILY #30 tab 09/01/19 Rx Patient History Medical History Acid reflux disease BPH loc w urin obs/LUTS Cervical disc disease Chronic back pain Chronic rhinitis Depression Diabetes mellitus type 2, uncontrolled Diabetic peripheral neuropathy Fatty liver Foot drop Functional gait disorder with tremor H/O alcohol abuse Heart disease Hyperlipidemia Hypertension Intercostal neuralgia Lumbar spondylosis Lumbosacral radiculopathy at L5 Male erectile disorder Opioid dependence Peripheral polyneuropathy Pulmonary nodule (Inactive) Sensorineural hearing loss of both ears Tinnitus of both ears Surgical History History of laparoscopic cholecystectomy (01/2016) Onset: 18Jan2016 - Performed by Dr. Wade. History of oral surgery tooth extraction S/P insertion of spinal cord stimulator (11/19/18) Family History Brother Alcohol abuse Hypertension Grandfather Cardiac disorder Myocardial infarction, Onset Age: 62 Mother Cardiac disorder Diabetes Gallbladder disease Hypertension Kidney disease Father Diabetes Hypertension Hearing loss Sister Hypertension Unknown Wilsons disease Other No known allergies Denies family history of Ovarian cancer Prostate cancer Adverse anesthesia outcome Breast cancer Sinusitis Bleeding disorder Colorectal cancer Cancer Stroke Asthma Social History Preferred Language: Icelandic Communication Ability: Effective Visual Impairment: No Limitations Hearing Ability: Normal Technical Sme Required: No Beliefs That Will Affect Care: None marital status: Current Living Situation: Alone Current Living Situation Comment: , 3 dogs and 2 cats current occupational status: unemployed, retired and disabled Feels Safe at Home: Yes Smoking Status: Never smoker Second Hand Exposure: No ; Hx Alcohol Use: No Hx Substance Use: No Childhood Exposure to Second-Hand Smoke: No Dental Care, Regularly: No Physical Activity Frequency: Other Physical Activity Frequency Comment: Limited due to physical condition. Seatbelt Use: always Review of Systems Constitutional: no fever, no chills, no sweats, no fatigue and no weakness Eyes: no worsening vision Ear, Nose, Mouth, Throat: no dizziness Respiratory: + dyspnea on exertion; no cough, no chest congestion, no dyspnea, no pain on inspiration and no pain with cough Cardiovascular: + radiating jaw, neck or arm pain and + dyspnea on exertion; no chest pain, no chest pain at rest, no dyspnea at rest, no palpitations, no lightheadedness and no edema Gastrointestinal: no abdominal pain, no nausea, no vomiting, no constipation and no diarrhea/loose stools Genitourinary: no dysuria and no difficulty urinating Musculoskeletal: + back pain, + neck pain and + joint pain (L shoulder) Integumentary: no rash Neurologic: no falls and no headache(s) Psychiatric: no depression (patient denies having depression) Physical Exam Constitutional: well developed, well nourished and cooperative; no acute distress and not in distress Eyes: PERRL, conjunctivae normal, anicteric sclerae ENMT: external ear and nose normal, oropharynx normal Respiratory: normal respiratory effort, lungs clear to auscultation Cardiovascular: RRR, no murmur, no edema Vessels: posterior tibial pulses present, dorsalis pedis pulses present and radial pulses present; no JVD and no carotid bruit Extremities: no calf tenderness and no edema Gastrointestinal (Abdomen): Inspection/Auscultation: abdomen normal to inspection and normal bowel sounds; abdomen not distended Percussion/Palpation: + abdomen tender (patient does note some epigastric tenderness) and abdomen soft Neurologic: Motor/Sensory: + tremor (most notable in upper extremities b/l ) Psychiatric: A+Ox3, euthymic affect Results & Data ([facility]) Vital Signs (Past 12 Hours) Vital Signs Temp Pulse Resp BP Pulse Ox 09/01/19 08:00 76 16 95 09/01/19 04:00 36.7 C 20 125/76 96 08/31/19 22:50 36.7 C 16 126/81 96 PG Care Time/CCT Total # of Minutes Spent Total Time Spent with Patient: Total time spent is greater than 50% in coordination of care (as documented) at patient's floor/unit and/or counseling patient: Coding Level of Care Code 90111 Office/OBS Consult Lvl 4 Diagnoses Chest pain R07.9 Diabetes mellitus type 2, uncontrolled E11.65 Abnormal EKG R94.31 Hyperlipidemia E78.5 Hypertension I10 Resident Activity Tracking Resident Involvement: Resident Care Provided Care Provided: Adult [facility]
--- NOTE | 2019-09-01 11:32 | Discharge Summary ---
Date of Service September 01, 2019 Admission HPI Per Admitting Provider The patient is a 63-year-old male with a past medical history including alcohol abuse, BPH with urinary obstruction, fatty liver, functional gait disorder with tremor, foot drop, hyperlipidemia, diabetes mellitus type 2, depression, GERD, peripheral polyneuropathy, opioid dependence, hypertension, heart disease and diabetic peripheral neuropathy. The patient reports that he got an EKG performed by his psychiatrist earlier in the week prior to starting new medication, and the psychiatrist had referred him to his PCPs office due to concerns regarding abnormalities. This EKG suggested an inferior wall ND that was new since his most recent EKG. The patient reports that he had an episode while walking 4 to 5 miles in [place] where he developed severe left-sided chest pain that radiated into his neck and arm. He does report that he has had less intense similar discomfort over the past few months, including prior to the episode in [place]. These episodes may occur with or without activity, and resolve spontaneously. Admission Exam Per Admitting Provider The patient is awake, alert and oriented 3, well developed and well nourished, normocephalic and atraumatic, sitting upright in bed, noted resting tremor, and otherwise in no acute distress. HEENT--PERRL, EOMI, mucous membranes and oropharynx normal. Neck--supple. No JVD. No bruits. Thyroid normal, trachea midline, no adenopathy. Heart--normal S1 and S2. No murmurs, rubs or gallops. Lungs--clear bilaterally, no respiratory distress, no accessory muscle use. Abdomen--normal bowel sounds and soft. Nontender. Nondistended. Extremities--no cyanosis or clubbing. No edema. Dermatologic--normal skin turgor, normal color, no abnormal lymph nodes, no rash. Neurologic--cranial nerves II through XII grossly intact. Rheumatologic--normal range of motion. Psychiatric--normal affect. Principal Diagnosis chest pain Discharge Exam Constitutional WD/WN, vitals as above cooperative Eyes + anicteric sclerae ENMT external ear and nose normal, oropharynx normal Neck normal visual inspection and trachea midline Respiratory normal respiratory effort, lungs clear to auscultation Cardiovascular RRR, no murmur, no edema Heart Sounds: normal S1 and normal S2 Gastrointestinal (Abdomen) Inspection/Auscultation: abdomen normal to inspection and normal bowel sounds Skin no rashes, warm and dry Neurologic Motor/Sensory: + tremor Psychiatric A+Ox3, euthymic affect Discharge Data Allergies Allergy/AdvReac Type Severity Reaction Status Date / Time gabapentin Allergy Intermediate other Verified 08/31/19 19:50 Consultations 08/31/19 19:46 ED Decision to Admit Stat 08/31/19 22:50 Consult Cardiology Routine Consult Case Management - Discharge Planning Routine Hospital Course (1) Abnormal EKG: Mr. Shore is a 63 yo M with a PMHx of type II diabetes, hypertension, hyperlipidemia who was directed to the ED by his PCP for evaluation of a possible, previous myocardial infarction. One week prior to admission Mr. Shore's psychiatrist ordered a screening EKG, which showed Q waves in leads III and aVF. The psychiatrist directed him to see his PCP, who sent him to the ED for further evaluation. Mr. Shore was not having any chest pain at the time of his admission, however he recounted an episode of left sided chest pain radiating up his jaw and down his left arm while physically exerting himself one month prior to presentation. He did not seek medical care following the episode. He reports a diminished exercise tolerance in the days following the episode, although now he has been able to build his stamina back up without recurrent chest pain or SOB. On admission, his EKG did show Q waves in III and AVF, however on further review, study appears unchanged from 11/2018. Troponin x 3 undetectable. 2-D TTE showed a normal EF without wall motion abnormalities. Stress test done in hospital was also normal. Thus, the Q waves on Mr. Shore's EKG was not felt to represent a prior myocardial infarction. As for what caused his chest pain episode one month prior to presentation, patient reports being under a high degree of stress at this time due to getting from his on 06/10/2019. It is possible etiology is related to stress/costochondritis. Patient certainly has risk factors for ACS, and he was counseled to go to nearest ED if he were to subsequently develop chest pain. (2) Diabetes mellitus type 2, uncontrolled: HbA1c 7.3 on admission, above goal. History reveals patient discontinued his metformin on 07/10/2019 for fear of adverse effects. Patient directed to resume home regimen of Victoza, Lantus insulin (40-50 units) and Novolog sliding scale. Outpatient items to do: repeat A1c in 3 months. Consider tightening up sugar control with increased insulin therapy. Patient is already insulin dependent, adding back metformin seems of little value. (3) Hyperlipidemia: Lipid profile checked in hospital. Total chol 204, LDL 123, HDL 41, ratio 5, TG 199. Recommend increasing Lipitor from 20mg to 40mg daily. Outpatient items to do: repeat lipid panel 6 weeks after increasing dose of Lipitor (4) Hypertension: Continue Lisinopril-HCTZ combo pill. BP at goal in hospital. Electrolytes stable. (5) BPH loc w urin obs/LUTS: Continue tamsulosin and proscar. Total Time Total Time Spent Total Time Spent (In Minutes): <30 Discharge Plan Discharge Items Patient Disposition: Home - Self-Care Reason For Visit: ABNORMAL EKG,L CHEST PAIN TO ARM AND NECK Discharge Diagnosis: Chest pain Activity: Resume your previous activity Non-emergency contact: Primary Care Provider Call non-emergency contact if: your symptoms worsen Follow-up/Referrals: Hannah Youngblood, [Primary Care Provider] - 09/08/19 2:30 pm (YOU APPOINTMENT WILL BE WITH [facility], SHE IS COVERING FOR [facility] [employer] BECAUSE SHE IS ON LEAVE.) Diet: Carb Consistent or DM2 and Heart Healthy Addtl Attending Provider Instructions: You were directed to [facility] by your family doctor for evaluation of an abnormal EKG (electrocardiogram). Features on this EKG had doctors concerned that you might have previously suffered a heart attack. You provided the history of having left sided chest pain that radiated to your jaw and left arm after physical exertion about 1 month. Cardiology was consulted to investigate further. An echocardiogram (ultrasound of your heart) was ordered and came back normal. A cardiac stress test was also performed while you were in the hospital, which was normal. It was therefore concluded that you DID NOT suffer a heart attack in the past. The chest pain you experienced while doing y our 5 mile walk in [place], [place] were likely related to stress from your recent divorce and/or alterations in your medications. That being said, if you were to experience chest pain in the future, we recommend you go to the emergency department to get evaluated. You have several risk factors for having a heart attack, including a positive history (your mother and father), your high blood pressure, high cholesterol and diabetes. You can reduce the risk of suffering a heart attack or stroke in the future by improving control of your diabetes and cholesterol. Continuing your daily walks (regular exercise) is recommended. Eating fewer carbohydrates (rice, pasta, bread, potatoes, sweet-drinks like soda, baked goods) will also help reduce your blood sugar and cholesterol. Diabetes Your hemoglobin A1c was elevated to 7.3, up from 6.9, which suggests a lack blood sugar control. Your goal A1c is <7. Elevated blood sugars can clog arteries, including those leading to vital organs such as the heart. Continue to take your Lantus and Novolog insulin as you had before coming to the hospital, in addition to your Victoza. Please follow up with your PCP regarding your diabetes. Cholesterol Your cholesterol was checked while you were in the hospital. Please increase your cholesterol medication from 20mg daily to 40mg, daily. Continue to take a daily baby aspirin. Blood Pressure Continue to take your lisinopril-HCTZ combination pill. Pending Studies at Discharge: No Stand-Alone Forms: [facility], Smoking Cessation Medications and DC Order Prescriptions: New atorvastatin [Lipitor] 40 mg tablet 40 mg PO DAILY Qty: 30 RF: 0 Continued (DME) Scooter Misc See Dose Instructions .ROUTE .MEDSUPPLY Qty: 1 RF: 0 (DME) Dexcom G6 Telephone Appointment Clerk misc See Dose Instructions .ROUTE .MEDSUPPLY Qty: 1 RF: 0 (DME) Dexcom G6 Sensor device See Dose Instructions .ROUTE .MEDSUPPLY Qty: 3 RF: 11 (DME) Dexcom G6 Transmitter device See Dose Instructions .ROUTE .MEDSUPPLY Qty: 1 RF: 3 (DME) OneTouch Ultra Blue Test Strip Strip See Dose Instructions .ROUTE .MEDSUPPLY Qty: 100 RF: 4 Lantus Solostar U-100 Insulin 100 unit/mL (3 mL) insulin pen 40 units subcut QPM Qty: 15 RF: 5 pen needle, diabetic [BD Ultra-Fine Short Pen Needle] 31 gauge x 5/16" needle See Rx Instructions .ROUTE .COMPLEX Qty: 100 RF: 4 morphine 15 mg tablet extended release 15 mg PO Q12H Qty: 60 RF: 0 oxycodone 5 mg tablet 5 mg PO Q12H PRN (Reason: pain) Qty: 60 RF: 0 cholecalciferol (vitamin D3) 10,000 unit capsule 10,000 units PO QAM RF: 0 Vitamin B-12 250 mcg tablet 250 mcg PO QAM RF: 0 escitalopram oxalate [Lexapro] 20 mg tablet 20 mg PO QAM RF: 0 bupropion HCl 75 mg tablet 75 mg PO BID RF: 0 alcohol swabs pads, medicated 1 pad topical TID Qty: 100 RF: 5 lidocaine 4 % adhesive patch,medicated 1 patch TOP Q12 PRN (Reason: pain) Qty: 6 RF: 5 Novolog Flexpen U-100 Insulin 100 unit/mL (3 mL) insulin pen 12 - 18 unit subcut TIDM RF: 0 aspirin [Adult Low Dose Aspirin] 81 mg tablet,delayed release (DR/EC) 81 mg PO QAM RF: 0 multivitamin tablet 1 tab PO QAM RF: 0 tamsulosin [Flomax] 0.4 mg capsule 0.8 mg PO PM RF: 0 pantoprazole 40 mg tablet,delayed release (DR/EC) 40 mg PO QAM RF: 0 lisinopril-hydrochlorothiazide 10-12.5 mg tablet 1 tab PO QAM RF: 0 finasteride [Proscar] 5 mg tablet 5 mg PO QAM RF: 0 tadalafil 5 mg tablet 23.5 mg PO QAM RF: 0 Victoza 3-Alberto 0.6 mg/0.1 mL (18 mg/3 mL) pen injector 0.6 mg SQ QAM RF: 0 Discontinued atorvastatin [Lipitor] 20 mg tablet 20 mg PO QAM RF: 0 No Action (DME) lancets [OneTouch Delica Lancets] 30 gauge misc See Dose Instructions .ROUTE .MEDSUPPLY Qty: 200 RF: 5 Discharge Orders: Discharge Order (Routine); Ordered 09/01/19 Ordered By: Brooklyn Pickering/Other Patient Handouts: Managing Type 2 Diabetes Admission Data Admit Date/Time: 08/31/19 20:30 Attending Provider: Avelino Paez Admit Provider: Ben Cody Primary Care Provider: Hannah Youngblood Other Providers: Ben Cody ; Antony Escoto Other Interventions: Discharge Summary Assessment (RN) Last Done: 09/01/19 13:40 DC Date/Time DO NOT enter until pt leaves facility: 09/01/19 13:00 Supervising Physician Co-Signing Physician Notes I personally examined the patient and verified all malik points of history and exam, discussed case, and agree with decision making with Dr Lau. feeling ok. want to go home. discussed echo, stress echo and comparison to EKG - he expressed understanding that both of the former were better diagnostic modailities. safe for home, wants to go home vitals noted nad heent nc at mmm breathing unlabored no accessory muscles good effort skin no rashes no pallor or icterus neuro no focal deficits MULTANI - likely multifactorial and situational between life change, stress, meds. fortunately does not appear cardiac, highly unlikely to be pulmonary -safe for home abnormal EKG - fortunately after further review, no ND. safe for home. otherwise as above Resident Activity Tracking Resident Involvement: Resident Care Provided Care Provided: Adult Hospital Medicine
--- NOTE | 2019-09-01 11:50 | Emergency Department Note ---
History of Present Illness General Chief complaint: Chest Pain Stated complaint: CHEST PAIN AND LEFT ARM PAIN, DRCorwin REFERRAL Time Seen by Provider: 08/31/19 18:41 Source: patient, RN notes reviewed and old records reviewed Mode of arrival: ambulatory History of Present Illness Provider complaint: chest pain Onset (ago): month(s) 1 Location: chest Radiation: extremity (left arm) Severity: severe Pain Consistency: + now resolved Maximum Pain Intensity: 5 Current Pain Intensity: 0 Quality: + stabbing Relieved By: + immobilization Exacerbated By: + movement Associated symptoms: no diaphoresis, no fever/chills, no headaches, no loss of appetite, no malaise, no nausea/vomiting, no shortness of breath and no weakness This is a 63-year-old male who presents emergency department complaining of left-sided chest pain that radiated down into his left arm approximately 1 month ago. The patient reports this happened while he was walking. The patient was seen his psychiatrist and was getting his medications changed however he was sent for an EKG. The EKG was concerning for a new inferior infarct. He has been pain-free since that incident approximately 1 month ago. He described the pain as sharp. Because of the new EKG findings he was sent to the emergency department. Resting made the pain go away, exertion made the pain worse. Home Medications Home Medications Medication Instructions Recorded Confirmed Type alcohol swabs 1 pad TOPICAL TID #100 ea 09/05/18 08/31/19 Rx lidocaine 4 % topical patch 1 patch TOP Q12 PRN #6 ea 09/05/18 08/31/19 Rx miscellaneous medical supply #1 ea 10/30/18 08/31/19 Rx cholecalciferol (vitamin D3) 250 10,000 units PO QAM 11/17/18 08/31/19 History mcg (10,000 unit) capsule cyanocobalamin (vitamin B-12) 250 250 mcg PO QAM 11/17/18 08/31/19 History mcg tablet Dexcom G6 Grated Cheese Maker #1 ea NS 01/19/19 08/31/19 Rx Dexcom G6 Sensor #3 ea NS 01/19/19 08/31/19 Rx Dexcom G6 Transmitter #1 ea NS 01/19/19 08/31/19 Rx aspirin 81 mg tablet,delayed 81 mg PO QAM 02/16/19 08/31/19 History release insulin aspart U-100 100 unit/mL 12 - 18 unit SUBCUT TIDM 02/16/19 08/31/19 History (3 mL) subcutaneous pen milliliter blood sugar diagnostic #100 ea 04/01/19 08/31/19 Rx lancets 30 gauge #200 ea 04/01/19 08/31/19 Rx insulin glargine 100 unit/mL (3 40 units SUBCUT QPM #15 ml 04/07/19 08/31/19 Rx mL) subcutaneous pen pen needle, diabetic 31 gauge x See Rx Instructions .ROUTE 07/01/19 08/31/19 Rx 07/24" .COMPLEX #100 unspecified bupropion HCl 75 mg tablet 75 mg PO BID tab 07/13/19 08/31/19 History escitalopram oxalate 20 mg tablet 20 mg PO QAM 07/13/19 08/31/19 History morphine 15 mg tablet,extended 15 mg PO Q12H #60 tab 08/25/19 08/31/19 Rx release oxycodone 5 mg tablet 5 mg PO Q12H PRN #60 tab 08/25/19 08/31/19 Rx atorvastatin [Lipitor] 20 mg PO QAM 08/31/19 08/31/19 History finasteride [Proscar] 5 mg PO QAM 08/31/19 08/31/19 History liraglutide [Victoza 3-Alberto] 0.6 mg SQ QAM 08/31/19 08/31/19 History lisinopril-hydrochlorothiazide 1 tab PO QAM 08/31/19 08/31/19 History multivitamin 1 tab PO QAM 08/31/19 08/31/19 History pantoprazole 40 mg PO QAM 08/31/19 08/31/19 History tadalafil 23.5 mg PO QAM 08/31/19 08/31/19 History tamsulosin [Flomax] 0.8 mg PO PM 08/31/19 08/31/19 History atorvastatin [Lipitor] 40 mg PO DAILY #30 tab 09/01/19 Rx Allergies Allergy/AdvReac Type Severity Reaction Status Date / Time gabapentin Allergy Intermediate other Verified 08/31/19 19:50 Past Med/Surg History Medical History Acid reflux disease BPH loc w urin obs/LUTS Cervical disc disease Chronic back pain Chronic rhinitis Depression Diabetes mellitus type 2, uncontrolled Diabetic peripheral neuropathy Fatty liver Foot drop Functional gait disorder with tremor H/O alcohol abuse Heart disease Hyperlipidemia Hypertension Intercostal neuralgia Lumbar spondylosis Lumbosacral radiculopathy at L5 Male erectile disorder Opioid dependence Peripheral polyneuropathy Pulmonary nodule (Inactive) Sensorineural hearing loss of both ears Tinnitus of both ears Surgical History History of laparoscopic cholecystectomy (01/2016) Onset: 18Jan2016 - Performed by Dr. Wade. History of oral surgery tooth extraction S/P insertion of spinal cord stimulator (11/19/18) Family History Brother Alcohol abuse Hypertension Grandfather Cardiac disorder Myocardial infarction, Onset Age: 62 Mother Cardiac disorder Diabetes Gallbladder disease Hypertension Kidney disease Father Diabetes Hypertension Hearing loss Sister Hypertension Unknown Wilsons disease Other No known allergies Denies family history of Ovarian cancer Prostate cancer Adverse anesthesia outcome Breast cancer Sinusitis Bleeding disorder Colorectal cancer Cancer Stroke Asthma Social History Preferred Language: Hebrew Communication Ability: Effective Visual Impairment: No Limitations Hearing Ability: Normal Child'S Nurse Required: No Beliefs That Will Affect Care: None marital status: Current Living Situation: Alone Current Living Situation Comment: , 3 dogs and 2 cats current occupational status: unemployed, retired and disabled Feels Safe at Home: Yes Smoking Status: Never smoker Second Hand Exposure: No ; Hx Alcohol Use: No Hx Substance Use: No Childhood Exposure to Second-Hand Smoke: No Dental Care, Regularly: No Physical Activity Frequency: Other Physical Activity Frequency Comment: Limited due to physical condition. Seatbelt Use: always Review of Systems A total of 10 systems reviewed and were otherwise negative Physical Exam Vital Signs Vital Signs - 24 hr 08/31/19 18:12 08/31/19 19:02 08/31/19 19:18 Temperature 36.5 C Temperature Source Oral Pulse Rate 80 Pulse Rate from SpO2 Sensor 80 Pulse Rhythm Regular Pulse Strength Normal Respiratory Rate 18 16 Respiratory Effort / Characteristics Non-Labored Spontaneous Respiratory Depth Normal Respiratory Pattern Regular Blood Pressure 116/73 Blood Pressure Mean 79 Blood Pressure Position Lying Pulse Oximetry 97 94 Oxygen Delivery Method Room Air Room Air Room Air Sepsis Recent Fever Within 48 Hours No Sepsis New/Unexplained Change in Mental Status No Sepsis Action Taken by Nursing No Action Required 08/31/19 19:30 08/31/19 20:00 Temperature Temperature Source Pulse Rate 81 76 Pulse Rate from SpO2 Sensor Pulse Rhythm Pulse Strength Respiratory Rate 23 18 Respiratory Effort / Characteristics Respiratory Depth Respiratory Pattern Blood Pressure 116/80 122/78 Blood Pressure Mean 88 83 Blood Pressure Position Pulse Oximetry 94 95 Oxygen Delivery Method Room Air Room Air Sepsis Recent Fever Within 48 Hours Sepsis New/Unexplained Change in Mental Status Sepsis Action Taken by Nursing VITAL SIGNS - Vital signs and nursing notes were reviewed. GENERAL - 63-year-old male appearing stated age who is in no acute distress. Communicates well with provider and answers questions appropriately. SKIN - Without rashes. HEAD - NC/AT. EYES - PERRL with EOMI bilaterally. Sclera anicteric. Palpebral conjunctiva pink and moist with no injection noted. EARS - No deformities of external structures noted on gross examination bilaterally. No pain elicited with palpation of the tragus bilaterally. External auditory canals without discharge or otorrhea. Tympanic membranes pearly lopez without retraction or bulging. No fluid or purulent material visualized behind the TM. Handle of malleus, umbo, cone of light, pars tensa/flaccid all easily visualized. NOSE - Midline and without cyanosis. No epistaxis or purulent drainage noted. Septum midline without deviation or septal hematoma noted. MOUTH/OROPHARYNX - Without perioral cyanosis. Buccal mucosa pink and moist and without leukoplakia. Tongue midline with equal elevation of palate bilaterally. No tonsillar hypertrophy, erythema, or exudates noted. dentition noted. NECK - Neck with FROM. Supple to palpation. lymphadenopathy noted. No nuchal r igidity. LUNGS - Chest wall symmetric without accessory muscle use, intercostals retractions, or central cyanosis. Normal vesicular breath sounds CTA B/L. No wheezes, rales, or rhonchi appreciated. CARDIAC - RRR with S1/S2. No murmur, rubs, or gallops appreciated. ABDOMEN - Abdominal contour without pulsations or visible masses. BS normoactive all four quadrants. No tenderness, palpable masses, hepatosplenomegaly, or ascites noted. EXTREMITIES - No clubbing or peripheral cyanosis. No pretibial edema present. +3/5 radial, posterior tibial, and dorsalis pedis pulses palpated throughout. +5 /5 strength noted in UE/LE bilaterally. NEUROLOGIC - Cranial nerves II through XII grossly intact. Sensory intact to light touch throughout. Patellar reflexes +2/4. PSYCH - A&Ox3 and cooperates fully with examiner. Pt is very pleasant and interacts well with examiner. Course Administered Medications Aspirin (Ecotrin Ectab) 81 mg PO QAM [facility] Stop: 10/01/19 08:59 Last Admin: 09/01/19 08:48 Dose: 81 mg Documented by: [id number] Atorvastatin Calcium (Lipitor) 20 mg PO QAM [facility] Stop: 10/01/19 08:59 Last Admin: 09/01/19 08:48 Dose: 20 mg Documented by: [id number] Bupropion HCl (Wellbutrin) 75 mg PO BID [facility] Stop: 09/30/19 22:49 Last Admin: 09/01/19 08:49 Dose: 75 mg Documented by: [id number] Admin: 09/01/19 00:35 Dose: Not Given Documented by: [id number] Cyanocobalamin (Vitamin B-12) 250 mcg PO QAM [facility] Stop: 10/01/19 08:59 Last Admin: 09/01/19 08:49 Dose: 250 mcg Documented by: [id number] Escitalopram Oxalate (Lexapro Tab) 20 mg PO [facility] Stop: 10/01/19 08:59 Last Admin: 09/01/19 08:48 Dose: 20 mg Documented by: [id number] Finasteride (Proscar) 5 mg PO QAM [facility] Stop: 10/01/19 08:59 Last Admin: 09/01/19 08:48 Dose: 5 mg Documented by: [id number] Lisinopril/HCTZ (Prinzide 10/12.5mg) 1 tab PO QAM [facility] Stop: 10/01/19 08:59 Last Admin: 09/01/19 08:49 Dose: 1 tab Documented by: [id number] Insulin Aspart (Novolog Flexpen) 0 units SC ACHS [facility] Stop: 09/30/19 22:59 Last Admin: 09/01/19 08:39 Dose: 4 units Documented by: [id number] Cosigned by: [id number] Admin: 09/01/19 00:37 Dose: 3 units Documented by: [id number] Cosigned by: [id number] Insulin Glargine (Lantus Solostar Pen) 30 units SQ QPM [facility] Stop: 09/30/19 22:59 Last Admin: 09/01/19 00:37 Dose: 30 units Documented by: [id number] Cosigned by: [id number] Miscellaneous (Order Awaiting Action) 1 ea N/A QS [facility] Stop: 10/01/19 00:00 Last Admin: 09/01/19 11:27 Dose: Not Given Documented by: [id number] Admin: 09/01/19 00:49 Dose: Not Given Documented by: [id number] Morphine Sulfate (Ms Contin) 15 mg PO Q12 [facility] Stop: 09/14/19 22:59 Last Admin: 09/01/19 08:54 Dose: 15 mg Documented by: [id number] Admin: 09/01/19 00:22 Dose: 15 mg Documented by: [id number] Multivitamins (Multivitamin Tab) 1 tab PO QAM [facility] Stop: 10/01/19 08:59 Last Admin: 09/01/19 08:49 Dose: 1 tab Documented by: [id number] Pantoprazole S[facility] ([facility]ix) [facility] Stop: 10/01/19 08:59 Last Admin: 09/01/19 08:48 Dose: 40 mg Documented by: [id number] Tamsulosin HCl (Flomax) 0.8 mg PO PM [facility] Stop: 09/30/19 22:49 Last Admin: 09/01/19 00:36 Dose: Not Given Documented by: [id number] Vitamin D (Vitamin D3) 10,000 units PO QAM [facility] Stop: 10/01/19 08:59 Last Admin: 09/01/19 08:48 Dose: 10,000 units Documented by: [id number] Discontinued Medications Aspirin (Aspirin) 324 mg PO NOW STA Stop: 08/31/19 18:53 Last Admin: 08/31/19 19:18 Dose: 324 mg Documented by: [id number] Nitroglycerin (Nitrostat) 0.4 mg SL NOW STA Stop: 08/31/19 18:53 Last Admin: 08/31/19 19:18 Dose: 0.4 mg Documented by: [id number] Medical Decision Making Differential Diagnosis Cardiac ischemia, aortic dissection, pulmonary embolism, pneumothorax, pneumonia, pericarditis, myocarditis, esophageal rupture, GERD, cholecystitis, pancreatitis, musculoskeletal, as well as other pathologies. Medical Records Attestation: I reviewed the patient's medical records. Home Medications Current Medication List: was personally reviewed by me Laboratory Data Attestation: I reviewed the patient's lab results. Result diagrams: 09/01/19 04:17 09/01/19 04:17 Lab Results 08/31/19 08/31/19 08/31/19 Range/Units 18:49 18:49 18:49 WBC 6.47 (4.8-10.8) K/uL RBC 4.93 (4.7-6.1) M/uL Hgb 15.1 (14.0-18.0) g/dL Hct 44.7 (42-52) % MCV 90.7 (80-100) fL MCH 30.6 (25-34) pg MCHC 33.8 (32-36) g/dL RDW Std Deviation 48.6 H (36.4-46.3) fL RDW Coeff of Jonathan 14.6 H (11.5-14.5) % Plt Count 177 (130-400) K/uL MPV 10.3 (7.4-10.4) fL Immature Gran % (Auto) 0.5 % Neut % (Auto) 68.1 % Lymph % (Auto) 21.3 % Hamlin % (Auto) 8.8 % Eos % (Auto) 1.1 % Baso % (Auto) 0.2 % Neut # (Auto) 4.41 (1.4-6.5) K/uL Lymph # (Auto) 1.38 (1.2-3.4) K/uL Hamlin # (Auto) 0.57 (0.11-0.59) K/uL Eos # (Auto) 0.07 (0-0.5) K/uL Baso # (Auto) 0.01 (0-0.2) K/uL Immature Gran # (Auto) 0.03 H (0.00-0.02) K/uL PT 10.7 (9.0-12.0) Seconds INR 1.0 (0.9-1.1) APTT 21.4 (21.0-31.0) Seconds PTT Ratio 0.8 Sodium 134 L (136-145) mmol/L Potassium (3.5-5.1) mmol/L Chloride 103 (98-107) mmol/L Carbon Dioxide 23 (21-32) mmol/L Anion Gap 8.0 (3-11) BUN 19 H (7-18) mg/dl Creatinine 1.15 (0.6-1.4) mg/dl Est Cr Clr Drug Dosing 69.1 ml/min Est GFR ( Amer) 78.1 Est GFR (Non-Af Amer) 67.4 BUN/Creatinine Ratio 16.4 (10-20) Glucose 185 H (70-99) mg/dl Calcium 9.7 (8.5-10.1) mg/dl Total Bilirubin 0.7 (0.2-1) mg/dl AST (15-37) U/L ALT 78 (12-78) U/L Alkaline Phosphatase 87 (45-117) U/L Total Creatine Kinase (39-308) U/L CK-MB (CK-2) 3.2 (0.5-3.6) ng/ml CK/CKMB % Calc TNP Troponin I < 0.015 (0-0.045) ng/ml Total Protein 8.0 (6.4-8.2) gm/dl Albumin 4.0 (3.4-5.0) gm/dl Globulin 4.0 (2.5-4.0) gm/dl Albumin/Globulin Ratio 1.0 (0.9-2) Lipase 232 (73-393) U/L Imaging Data Radiologist's Impression: [facility], [place] [phone] XRay Report Patient: JEFFRY OCHOA Date: 08/31/19 MR#: [id number]: [address] [place] [address] Acct ID:[id number]: [address] Date: [address] [place] [address] Zip: [place] [address] Age: 63Location: ED Sex: M Room/Bed: Att Phy:Diagnosis: CHEST PAIN AND LEFT ARM PAIN, DRCorwin REFERRAL [place]ckenzie Phy: Tasneem Youngblood, DOService Date: 08/31/19 [facility] Phy:Interpreting Phy: Rubin Garcia MD Admit Phy: Ordering Phy: Girish Paulino MD cc: ~ XR chest 1V portable CLINICAL HISTORY: Chest Pain pain COMPARISON STUDY: 12/16/2017 FINDINGS: The bones soft tissues and hemidiaphragms are normal. The cardiomediastinal silhouette is normal. The lungs are clear. The pulmonary vasculature is normal. IMPRESSION: Negative chest. ACT 112: Negative or not required by law. The above report was generated using voice recognition software. It may contain grammatical, syntax or spelling errors. Electronically signed by: Rubin Garcia M.D. 08/31/2019 7:32 PM Dictated: 08/31/191931 Transcribed: 08/31/191931 ECG Data Attestation: I personally reviewed and interpreted this ECG as follows: Indication: chest pain Rate (beats per minute): 79 Rhythm: normal sinus Findings: + Q waves (Inferior); no ST depression and no ST elevation Comparison ECG Date: from (04/22/2017) Change: the following changes noted (New inferior infarct) MDM Narrative Patient was seen and evaluated as above in room B6. Review was performed of nursing notes and vital signs. I did review pertinent previous visits and patient history. After obtaining a thorough history and physical examination the above work up was performed. This is a 63-year-old male who presents emergency department complaining of chest and shoulder pain. Patient was given nitro. Repeat examination revealed improvement the patient's symptoms. I did discuss the case with the hospitalist service who did agree admit the patient. Patient does not have an elevation his troponin does not have an elevation his white blood cell count. Patient is in agreement with the treatment plan. An order was placed for continuous cardiac monitoring. The monitor shows a rate of 76 with Normal Sinus rhythm. The patient was evaluated during the global COVID-19 pandemic, and that diagnosis was suspected/considered upon their initial presentation. Their evaluation, treatment and testing was consistent with current guidelines for patients who present with complaints or symptoms that may be related to COVID- 19. Impression & Plan Chest pain Discharge Plan Visit Data *Final* Discharge Date/Time: 08/31/19 22:27 Chief Complaint: Chest Pain Stated Complaint: CHEST PAIN AND LEFT ARM PAIN, DRCorwin REFERRAL ED Provider: Girish Paulino Discharge Problem: Chest pain Patient Disposition: Admitted As Inpatient Discharge Instructions Interventions: ED Discharge Assessment Last Done: 08/31/19 22:27 Discharge Problem: Chest pain Qualifiers: Chest pain type: unspecified Qualified Code(s): R07.9 - Chest pain, unspecified
--- NOTE | 2019-09-01 14:15 | XCELERA ---
[id number]
--- NOTE | 2019-09-01 15:37 | Electrocardiogram Report ---
Test Reason : Blood Pressure : / mmHG Vent. Rate : 079 BPM Atrial Rate : 079 BPM P-R Int : 122 ms QRS Dur : 100 ms QT Int : 362 ms P-R-T Axes : 023 -14 023 degrees QTc Int : 415 ms Poor data quality, interpretation may be adversely affected Normal sinus rhythm Inferior infarct , age undetermined Abnormal ECG When compared with ECG of 22-APR-2017 16:41, Inferior infarct is now Present Confirmed by Solomon White ([id number]) on 09/01/2019 3:37:04 PM Referred By: Tasneem Youngblood Confirmed By:Solomon White
--- NOTE | 2019-09-01 15:54 | Electrocardiogram Report ---
Test Reason : Blood Pressure : / mmHG Vent. Rate : 067 BPM Atrial Rate : 067 BPM P-R Int : 148 ms QRS Dur : 092 ms QT Int : 396 ms P-R-T Axes : 009 -05 079 degrees QTc Int : 418 ms Normal sinus rhythm Inferior infarct (cited on or before 31-AUG-2019) Abnormal ECG When compared with ECG of 31-AUG-2019 18:13, (unconfirmed) Questionable change in initial forces of Inferior leads Nonspecific T wave abnormality no longer evident in Inferior leads Confirmed by Solomon White ([id number]) on 09/01/2019 3:54:11 PM Referred By: Tasneem Yonugblood Confirmed By:Solomon White
--- NOTE | 2019-09-01 16:08 | Billing Data ---
Date of Service September 01, 2019 Coding Level of Care Code 23464 OBS Care - Discharge
== END 2019-09-01 13:00 | disposition home or self-care (01) ==
LOC: ED 18:09 → 1E 18:09 → SUATTDRO 20:30 → 1E 22:27